=== PATIENT | male | born 1960 | race Two or more races ===

== ENCOUNTER 2018-04-01 06:40 | Emergency (ER) | payer MEDICAID ==
[~2018-04-01] VITALS: Ht 177.8 cm; Wt 86.2 kg
[2018-04-01 10:45] VITALS: BP 148/78
== END 2018-04-01 11:05 | disposition home or self-care (01) ==
LOC: ER 06:40 → EDBD 06:40 → ER 11:05
DX: L03.116 Cellulitis of left lower limb (principal); I10 Essential (primary) hypertension; F17.210 Nicotine dependence, cigarettes, uncomplicated
CPT/HCPCS: 36415; 84550; 93971

== ENCOUNTER 2018-05-14 21:58 | Inpatient (IN) | payer MEDICAID | END 2018-05-17 13:10 | disposition home or self-care (01) | LOC: ER 21:58 → OVERFLOW 05-15 06:50 → WEST WING 05-15 23:02 | DX: M86.8X7 Other osteomyelitis, ankle and foot (principal); L03.116 Cellulitis of left lower limb; I10 Essential (primary) hypertension ==

== ENCOUNTER 2022-03-14 05:01 | Emergency (ER) | payer MEDICAID ==
[~2022-03-14] VITALS: Ht 177.8 cm; Wt 97.0 kg
[2022-03-14 07:46] LABS: Basophils # (auto) 0 10 ^3/uL (0-0.2); Basophils % (auto) 0.5 % (0.0-2.0); Eosinophils # (auto) 0.2 10 ^3/uL (0-0.8); Eosinophils % (auto) 4.8 % (0.0-7.0); Hematocrit 37.9 % (41.0-53.0); Hemoglobin 11.8 g/dL (13.5-17.5); Lymphocytes # (auto) 1.1 10 ^3/uL (0.4-5.4); Lymphocytes % (auto) 25.3 % (10.0-50.0); Mean Corpuscular Hemoglobin 24.3 pg (28.0-32.0); Mean Corpuscular Hgb Conc. 31.2 g/dL (32.0-36.0); Monocytes # (auto) 0.5 10 ^3/uL (0-1.3); Monocytes % (auto) 11.4 % (0.0-12.0); Neutrophils # (auto) 2.5 10 ^3/uL (1.6-8.6); Nucleated Red Blood Cells % 0.2 %; Red Blood Cells 4.86 10^6/uL (4.5-5.90); Red Cell Distribution Width 15.5 % (11.8-14.3); White Blood Cell 4.4 10^3/uL (4.4-10.8)
[2022-03-14 08:14] LABS: Albumin 2.7 g/dL (3.4-5.0); BUN/Creatinine Ratio 22.7; Calcium 8.7 mg/dL (8.5-10.1)
[2022-03-14 08:16] LABS: Bilirubin, Total 0.3 mg/dL (0.2-1.0); Total Protein 8.3 g/dL (6.4-8.2)
[2022-03-14 10:36] VITALS: BP 165/85
== END 2022-03-14 10:39 | disposition home or self-care (01) ==
LOC: ER 05:16
DX: S86.911A Strain of unspecified muscle(s) and tendon(s) at lower leg level, right leg, initial encounter (principal); I10 Essential (primary) hypertension; E46 Unspecified protein-calorie malnutrition; F17.210 Nicotine dependence, cigarettes, uncomplicated; F15.90 Other stimulant use, unspecified, uncomplicated; Z90.89 Acquired absence of other organs; X58.XXXA Exposure to other specified factors, initial encounter; Y93.89 Activity, other specified; Y92.89 Other specified places as the place of occurrence of the external cause; Y99.8 Other external cause status
CPT/HCPCS: 36415; 80053; 84484; 85025; 93970

== ENCOUNTER 2024-03-21 | Inpatient (IN) | payer MEDICAID ==
[2024-03-21] VITALS (7 sets, daily range): BP systolic 111–142; BP diastolic 67–86; PULSE 67–82; RESP 18–20; TEMP 97.3–98.7; O2SAT 93–98
[~2024-03-21] VITALS: Ht 177.8 cm; Wt 92.2 kg
--- NOTE | 2024-03-21 03:26 | ED.PDOC ---
History of Present Illness(SKN HPI Comments PT PRESENTED TO ED FOR LEFT UPPER ARM PAIN AFTER TETANUS VACCINE X1 MONTH AGO. UPPER ARM REDNESS/SWELLING NOTED. HE HAS NUMBNESS, WEAKNESS, CHEST PAIN, DIFFICULTY BREATHING, SHORTNESS BREATH, FEVER, OR CHILLS Chief Complaint: Upper Extremity Time Seen by MD: 00:06 Primary Care Provider: SHARRI History of Present Illness: Nurses Notes, Medications, Allergies Allergies: Coded Allergies: Gabapentin (Verified Allergy, Unknown, 03/21/24) Home Meds No Active Prescriptions or Reported Meds Information Source: Patient Mode of Arrival: Ambulatory Past Medical History PAST MEDICAL HISTORY: HTN, Liver Past Medical History (Other): HEP C METHADONE FOR OPIOID ADDICTION IV HEROIN Surgical History: Tonsillectomy Family History Family History: No family hx of DM, No family hx of Heart shannen, No family hx of HTN Social History Smoker: Cigarettes, Greater Than 1 Pack/Day Alcohol: Sober Drugs: Heroin Lives In: Home Constitutional: denies: chills, diaphoresis, fatigue, fever, malaise, sweats, weakness, others EENTM: denies: blurred vision, double vision, ear bleeding, ear discharge, ear drainage, ear pain, ear ringing, eye pain, eye redness, hearing loss, mouth pain, mouth swelling, nasal discharge, nose bleeding, nose congestion, nose pain, photophobia, tearing, throat pain, throat swelling, voice changes, others Respiratory: denies: cough, hemoptysis, orthopnea, SOB at rest, shortness of breath, SOB with excertion, stridor, wheezing, others Cardiovascular: denies: chest pain, dizzy spells, diaphoresis, Dyspnea on exertion, edema, irregular heart beat, left arm pain, lightheadedness, palpitations, PND, syncope, others Gastrointestinal: denies: abdomen distended, abdominal pain, blood streaked bowels, constipated, diarrhea, dysphagia, difficulty swallowing, hematemesis, melena, nausea, poor appetite, poor fluid intake, rectal bleeding, rectal pain, vomiting, others Genitourinary: denies: burning, dysuria, flank pain, frequency, hematuria, i ncontinence, penile discharge, penile sore, pain, testicle pain, testicle swelling, urgency, others Neurological: denies: dizziness, fainting, headache, left sided numbness, left sided weakness, numbness, paresthesia, pre-existing deficit, right sided numbness, right sided weakness, seizure, speech problems, tingling, tremors, weakness, others Musculoskeletal: reports: others (OVER LATERAL LEFT SHOULDER PAIN); denies: back pain, gout, joint pain, joint swelling, muscle pain, muscle stiffness, neck pain Integumetry: denies: bruises, change in color, change in hair/nails, dryness, laceration, lesions, lumps, rash, wounds, others Allergic/Immunocompromised: denies: Difficulty Healing, Frequent Infections, Hives, Itching, others Hematologic/Lymphatic: denies: anemia, blood clots, easy bleeding, easy bruising, swollen glands, others Endocrine: denies: excessive hunger, excessive sweating, excessive thirst, excessive urination, flushing, intolerance to cold, intolerance to heat, unexplained weight gain, unexplained weight loss, others Psychiatric: denies: anxiety, bipolar disorder, depression, hopeless, panic disorder, schizophrenia, sleepless, suicidal, others Physical Exam General Appearance: No Apparent Distress, Normal HEENT: Pharynx Normal Neck: Full Range of Motion, Non-Tender Respiratory: Lungs Clear, No Respiratory Distress, Normal Breath Sounds Cardiovascular: No Edema, No JVD, No Murmur, No Gallop, Normal Peripheral Pulses, Regular Rate/Rhythm Breast Exam: Deferred Gastrointestinal: No Organomegaly, Non Tender, No Pulsatile Mass, Normal Bowel Sounds, Soft Genitalia: Deferred Pelvic: Deferred Rectal: Deferred Extremities: Leg edema (+ 2 PITTING BILATERAL), No calf tenderness, Normal capillary refill, Normal inspection, Normal range of motion, Non-tender Musculoskeletal : Location: Left Extremity Location: Shoulder (APPROXIMATE TENNIS BALL SIZE MASS TO LEFT LATERAL SHOULDER OVER DELTOID WITH MODERATE TENDERNESS AND WARMTH. 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 Was a procedure done?: No Differential Diagnosis (INTG) Differential Diagnosis: Cellulitis, Contusion Differential Diagnosis: Abscess, Drug Reaction X-Ray, Labs, Meds, VS Vital Signs Date Time Temp Pulse Resp B/P (MAP) Pulse Ox O2 Delivery O2 Flow Rate FiO2 03/21/24 03:22 98.0 79 19 146/83 (104) 96 98.0 03/21/24 03:22 79 19 96 Room Air 03/21/24 00:48 98.5 89 16 139/82 (101) 99 Lab Test 03/21/24 05:14 Range/Units White Blood Count 6.4 4.4-10.8 10^3/uL Red Blood Count 3.31 L 4.5-5.90 10^6/uL Hemoglobin 7.6 L 13.5-17.5 g/dL Hematocrit 24.4 L 41.0-53.0 % Mean Corpuscular Volume 73.8 L 80.0-100.0 fL Mean Corpuscular Hemoglobin 22.9 L 28.0-32.0 pg Mean Corpuscular Hemoglobin Concent 31.1 L 32.0-36.0 g/dL Red Cell Distribution Width 17.6 H 11.8-14.3 % Platelet Count 334 140-450 10^3/uL Mean Platelet Volume 6.7 L 6.9-10.8 fL Neutrophils (%) (Auto) 66.6 37.0-80.0 % Lymphocytes (%) (Auto) 19.8 10.0-50.0 % Monocytes (%) (Auto) 12.5 H 0.0-12.0 % Eosinophils (%) (Auto) 0.6 0.0-7.0 % Basophils (%) (Auto) 0.5 0.0-2.0 % Neutrophils # (Auto) 4.2 1.6-8.6 10 ^3/uL Lymphocytes # (Auto) 1.3 0.4-5.4 10 ^3/uL Monocytes # (Auto) 0.8 0-1.3 10 ^3/uL Eosinophils # (Auto) 0 0-0.8 10 ^3/uL Basophils # (Auto) 0 0-0.2 10 ^3/uL Nucleated Red Blood Cells 0.0 % Erythrocyte Sedimentation Rate Pending Sodium Level Pending Potassium Level Pending Chloride Level Pending Carbon Dioxide Level Pending Anion Gap Pending Blood Urea Nitrogen Pending Creatinine Pending Glomerular Filtration Rate Calc Pending BUN/Creatinine Ratio Pending Serum Glucose Pending Calcium Level Pending Total Bilirubin Pending Aspartate Amino Transferase (AST) Pending Alanine Aminotransferase (ALT) Pending Alkaline Phosphatase Pending C-Reactive Protein High Sensitivity Pending Total Protein Pending Albumin Pending X-Ray, Labs, Meds, VS Comment PT LEFT SHOULDER IMPRESSION: 1. Large left glenohumeral joint effusion. This could be infectious or inflammatory in etiology. No bony destruction to suggest osteomyelitis however please note that osteomyelitis may not be apparent on CT. MRI of the left shoulder without and with intravenous contrast is recommended further evaluation to exclude osteomyelitis. 2. Left axillary lymphadenopathy, likely reactive. PATIENT ADMIT PLACED FOR HOSPITALIST FOR SEPTIC JOINT AND RULE OUT OSTEOMYELITIS MRI WITH AND WITHOUT CONTRAST OF LEFT SHOULDER IN THE A.M., SYNOVIAL FLUID ASPIRATION/CULTURES, AND ORTHO CONSULT. CBC, CMP, ESR, CRP, AND BLOOD CULTURES ORDERED. START VANCOMYCIN AND CEFEPIME. Time of 1ST Reevaluation: 05:13 Reevaluation 1ST: Unchanged Patient Education/Counseling: Diagnosis, Treatment, Prognosis, Need For Follow Up Family Education/Counseling: No Family Present Departure 1 Departure Time of Disposition: 04:46 Impression: Primary Impression: Septic joint of left shoulder region Qualified Codes: M00.9 - Pyogenic arthritis, unspecified Additional Impressions: Effusion of shoulder joint, left Left shoulder pain Qualified Codes: M25.512 - Pain in left shoulder Disposition: ADMITTED INPATIENT Condition: Stable e-Prescriptions No Active Prescriptions or Reported Meds Discharged With: Self Critical Care Note Critical Care Time?: No Stability Stability form required: ANITA Lopez Mar 21, 2024 03:26
--- NOTE | 2024-03-21 04:42 | DVH ---
CLINICAL INDICATION: 63 years old, Male; LUMP/PAIN. TECHNIQUE: Noncontrast CT of the left shoulder was performed. Sagittal and coronal reformatted images are provided. COMPARISON: None CT Dose: CTDI volume is 28.5 mGy. Dose-length product is 698. mGy*cm FINDINGS: No fracture or dislocation. No cortical destruction. There is a fairly large glenohumeral joint effus ion. Enlarged left axillary lymph nodes measuring up to 1.4 cm in short axis. Visualized left lung clifton are clear. IMPRESSION: 1. Large left glenohumeral joint effusion. This could be infectious or inflammatory in etiology. No bony destruction to suggest osteomyelitis however please note that osteomyelitis may not be apparent on CT. MRI of the left shoulder without and with intravenous contrast is recommended further evaluati on to exclude osteomyelitis. 2. Left axillary lymphadenopathy, likely reactive. All CT scans at this medical facility are performed using dose modulation techniques as appropriate t o a performed exam including the following: Automated exposure control was utilized; adjustment of th e MA and/or KV according to patient size; and use of iterative reconstruction technique.
[2024-03-21] MEDS: CEFEPIME 1GM/ 50ML 50 ML IV ONE (05:15)
[2024-03-21 05:51] LABS: Basophils # (auto) 0 10 ^3/uL (0-0.2); Basophils % (auto) 0.5 % (0.0-2.0); Eosinophils # (auto) 0 10 ^3/uL (0-0.8); Eosinophils % (auto) 0.6 % (0.0-7.0); Hematocrit 24.4 % (41.0-53.0); Hemoglobin 7.6 g/dL (13.5-17.5); Lymphocytes # (auto) 1.3 10 ^3/uL (0.4-5.4); Lymphocytes % (auto) 19.8 % (10.0-50.0); Mean Corpuscular Hemoglobin 22.9 pg (28.0-32.0); Mean Corpuscular Hgb Conc. 31.1 g/dL (32.0-36.0); Mean Corpuscular Volume 73.8 fL (80.0-100.0); Monocytes # (auto) 0.8 10 ^3/uL (0-1.3); Monocytes % (auto) 12.5 % (0.0-12.0); Neutrophils # (auto) 4.2 10 ^3/uL (1.6-8.6); Neutrophils % (auto) 66.6 % (37.0-80.0); Platelet Count (auto) 334 10^3/uL (140-450); Red Blood Cells 3.31 10^6/uL (4.5-5.90); Red Cell Distribution Width 17.6 % (11.8-14.3); White Blood Cell 6.4 10^3/uL (4.4-10.8)
[2024-03-21] MEDS: VANCOMYCIN 1GM/250ML KIT 250 ML IV ONE ×2 (06:08→08:50)
[2024-03-21] MEDS ORDERED: HYDR25TA4 PO (06:09)
[2024-03-21] MEDS ORDERED: BENA10TA16 PO (06:09)
[2024-03-21] MEDS ORDERED: ACETAMINOPHEN 325 MG TAB PO PRN (06:30)
[2024-03-21] MEDS ORDERED: VANCOMYCIN PER PHARMACY 0 MG IV SCH (06:30)
[2024-03-21] MEDS ORDERED: ONDANSETRON HCL 4 MG/2 ML VIAL IV PRN (06:30)
[2024-03-21 06:37] LABS: Albumin 3.3 g/dL (3.2-4.8); Alkaline Phosphatase 86 U/L (46-116); Anion Gap 4 (5-15); BUN/Creatinine Ratio 17.5 (10.0-20.0); Bilirubin, Total 0.5 mg/dL (0.2-1.0); Blood Urea Nitrogen 17 mg/dL (9-23); Carbon Dioxide 27 mmol/L (20-31); Chloride 101 mmol/L (98-107); Glucose 82 mg/dL (74-106); Potassium 4.2 mmol/L (3.5-5.1)
[2024-03-21] MEDS ORDERED: OMEP1CAP70 (06:38)
[2024-03-21 06:39] LABS: Erythrocyte Sedimentation Rate 111 mm/hr (0-20)
[2024-03-21 06:44] LABS: Alanine Aminotransferase 63 U/L (7-40); Aspartate Aminotransferase 127 U/L (13-40); Sodium 132 mmol/L (136-145); Total Protein 9.9 g/dL (5.7-8.2)
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
--- NOTE | 2024-03-21 07:54 | DVH ---
CLINICAL HISTORY: Bilateral lower extremity pain and swelling. COMPARISON: BI LOWER DVT on DOS: 03/14/22, BLDVT on DOS: 03/14/22 TECHNIQUE: Bilateral lower extremity venous duplex exam was performed. Grayscale, color flow, and spe ctral waveform analysis was performed. The deep veins of the lower extremity were evaluated for compr ession, phasic flow, and augmentation. FINDINGS: There is nonocclusive superficial thrombus in the left lower extremity greater saphenous ve in. Bilateral common femoral, femoral, and popliteal arteries are patent with normal spontaneous phas ic flow, compressibility, and augmentation. The posterior tibial veins and trifurcation of the calf a re also patent with normal spontaneous phasic flow. No evidence for deep venous thrombosis. Multiple bilateral inguinal lymph nodes, with the largest on the right measuring up to 3.2 x 1.0 x 2.2 cm and the largest on the left measuring up to 4.7 x 1.4 x 3.5 cm. These lymph nodes demonstrate echogenic h sebastian and normal reniform shape with no cortical thickening visualized. Likely reactive lymph nodes. IMPRESSION: 1. There is no evidence for DVT in either lower extremity. 2. Nonocclusive superficial thrombus in the left greater saphenous vein. 3. Multiple bilateral inguinal lymph nodes as described above, likely reactive lymph nodes based on m orphology, although given the size of the lymph nodes, correlation with clinical findings is needed. If there is clinical concern for malignancy, biopsy could be obtained.
--- NOTE | 2024-03-21 08:27 | DVH ---
CLINICAL INDICATION: 63 years old, Male; PAIN AND SWELLING. TECHNIQUE: Noncontrast CT of the left lower extremity was performed. Sagittal and coronal reformatted images are provided. COMPARISON: None CT Dose: CTDI volume is 11.42 mGy. Dose-length product is 1214.48 mGy*cm FINDINGS: No fracture or dislocation. No evidence of cortical destruction. There is narrowing in the left hip a nd knee joints. There soft tissue swelling in the lower extremity [id number] down to the ankle. There are varicose veins. No fluid collection. There is skin thickening in the ankle. IMPRESSION: 1. Diffuse soft tissue swelling from dudyn-nwk-bwma down to the ankle which may reflect cellulitis. N o fluid collection. No CT evidence of osteomyelitis. 2. Mild degenerative changes in the left hip and knee joints. All CT scans at this medical facility are performed using dose modulation techniques as appropriate t o a performed exam including the following: Automated exposure control was utilized; adjustment of th e MA and/or KV according to patient size; and use of iterative reconstruction technique.
[2024-03-21] MEDS: HYDROcodone-ACET 5/325MG TAB PO PRN (08:30)
[2024-03-21 08:52] LABS: % Iron Saturation 11.8 % (20-55)
--- NOTE | 2024-03-21 08:55 | DVH ---
CLINICAL INFORMATION: 63 years old, Male; PAIN AND SWELLING. TECHNIQUE: Axial CT images of the left lower extremity from the right hip level through the foot were obtained without IV contrast. Coronal and sagittal reformatted images were obtained, reviewed, and s tored. All CT scans at this medical facility are performed using dose modulation techniques as domingo ropriate to a performed exam including the following: Automated exposure control was utilized; adjust ment of the MA and/or KV according to patient size; and use of iterative reconstruction technique. CTDIvol = 11.38 mGy DLP = 1200.19 mGy-cm COMPARISON: None FINDINGS: No acute fracture. Moderate joint space narrowing of the right hip with associated mild sub chondral sclerosis. There are osteochondral defects at the articular surfaces of the medial and la teral tibial plateau, measuring up to 1.7 x 1.1 cm at the lateral tibial plateau and extending up to 0.8 cm in depth. At the medial tibial plateau, there is a small 0.6 cm osteochondral defect. Severe j oint space narrowing in the medial compartment with associated subchondral sclerosis and moderate to severe joint space narrowing in the lateral compartment of the right knee. Moderate joint space narro wing in the patellofemoral compartment. Mild to moderate subcutaneous edema in the right lower leg wi th mild skin thickening. No organized soft tissue fluid collection or mass identified. IMPRESSION: 1. Osteochondral lesions in the medial and lateral tibial plateau and arthritic changes in the right knee as detailed above. 2. Moderate arthritic changes also noted in the right hip 3. Ofrb-el-hhjpfuyc subcutaneous edema in the right lower leg. Possible cellulitis in the appropriate clinical setting, although venous stasis changes could also have a similar appearance.
[2024-03-21] MEDS: hydroCHLOROthiazide 25 MG TAB PO SCH (09:53)
[2024-03-21] MEDS: BENAZEPRIL HCL 10 MG TAB PO SCH (09:53)
[2024-03-21] MEDS: ENOXAPARIN SOD 100 MG/1 ML SYRINGE SC SCH (09:54)
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
[2024-03-21] MEDS: CEFEPIME 1GM/ 50ML 50 ML IV SCH ×2 (14:30→20:46)
[2024-03-21] MEDS: VANCOMYCIN 1.25GM/250ML 250 ML IV SCH (15:00)
--- NOTE | 2024-03-21 16:00 | DVHSR ---
APPROVED REPORT EXAM: Two-dimensional and M-mode echocardiogram with Doppler and color Doppler. Blood Pressure: 112/67 mmHg INDICATION Pre-Op Procedural, eval cardiac function RISK FACTORS Height: 70, Weight: 205 DIMENSIONS LVDd4.7 (3.8-5.7cm)LA (2D)3.8 (1.9-4.0cm)Aortic Root4.0 (2.0-3.7cm) LVDs3.2 (2.5-4.0cm)LA (MM) (1.9-4.0cm)Aortic Cusp Exc2.1 (1.5-2.0cm) EF (%) 60.0 (55-70%)Rt. Atrium3.5 (1.9-4.0cm)Asc. Aorta cm IVSd1.0 (0.7-1.1cm)RV (D) (1.8-2.4cm) PWd1.1 (0.7-1.1cm) Mitral Valve MitralMitral Stenosis E wave0.57m/sMV Mean GR.mmHg A wave0.84m/sMV Peak GR.mmHg E/A ratio0.72D MVAcm2 DECEL [id number] 1/2 [id number] IVRTmsDop MVA2.48cm2 Aortic Valve Aortic ValveAortic Stenosis V11.07m/Margo Mean GR.4mmHg V21.52m/Margo Peak GR.9mmHg LVOT Diameter2.2 (1.8-2.4cm)Doppler AVA2.67cm2 Pulmonic Valve V21.10m/s Tricuspid Valve TR Velocity2.33m/s [id number] LEFT VENTRICLE The left ventricle is of normal size. Wall thickness is normal. Ejection fraction is normal and is estimated at 60%. There is no regional wall motion abnormalities. Diastolic function appears to be preserved. E to E prime ratio is in normal range. RIGHT VENTRICLE The right ventricle is of normal size. Systolic function is normal. ATRIA Both atria are of normal size. Intra-atrial septum appears to be normal. MITRAL VALVE Normal structure and function. No significant mitral regurgitation. PULMONIC VALVE Likely normal. TRICUSPID VALVE Normal structure and function. There is mild tricuspid regurgitation. PA systolic pressure is estim ated at 30 mm Hg. AORTIC VALVE Normal structure and function. GREAT VESSELS The aortic root measures 4.0 cm at the level of the sinuses of Valsalva. Proximal ascending aorta is n't well visualized. PERICARDIAL EFFUSION No significant effusion. IVC is of normal size and collapses normally with inspiration. Conclusion Normal left ventricular size and systolic function. Ejection fraction is estimated at 60%. Normal right ventricular size and systolic function. No hemodynamically significant valvular disease. PA systolic pressure is estimated at 30 mm Hg. No significant pericardial effusion. Mildly dilated aortic root measuring 4.0 cm at the sinuses of Valsalva.
[2024-03-21] MEDS: METHADONE HCL 10 MG TAB PO ONE (16:43)
--- NOTE | 2024-03-21 16:48 | DVH ---
CHEST RADIOGRAPH Indication: Preprocedural examination Technique: Single frontal view of the chest was obtained Comparison: None FINDINGS: Lines and Tubes: None Lungs: No focal consolidation. Pleura: No effusion. No pneumothorax. Cardiomediastinal contours: Unremarkable Bones: No acute osseous abnormality. IMPRESSION: No acute cardiopulmonary disease.
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
[2024-03-21] MEDS: MORPHINE SULFATE INJ 2 MG/ml SYRG IV PRN (22:12)
[2024-03-22] VITALS (10 sets, daily range): BP systolic 114–150; BP diastolic 72–77; PULSE 58–82; RESP 16–22; TEMP 98–98.7; O2SAT 90–100
[2024-03-22 02:13] LABS: Urine Bacteria None Seen /hpf (None Seen)
[2024-03-22 02:32] LABS: Urine Blood 2+ /uL (Negative); Urine Clarity Turbid (Clear); Urine Color Yellow (Yellow); Urine Protein, UAD TRACE (Negative); Urine Specific Gravity 1.016 (1.001-1.035); Urine Squamous Epithelial Cell None Seen /hpf (<5); Urine Urobilinogen 3 mg/dL (Negative); Urine WBC 102 /HPF (0-3); Urine pH 6.5 (5.0-9.0)
[2024-03-22 02:53] LABS: Phencyclidine Screen, Urine Neg (NEGATIVE)
[2024-03-22 03:19] LABS: Amphetamine Screen, Urine Pos (NEGATIVE); Barbiturate Scree,Urine Neg (NEGATIVE); Benzodiazephine Screen, Urine Neg (NEGATIVE); Cannabinoid Screen, Urine Neg (NEGATIVE); Cocaine Screen, Urine Neg (NEGATIVE); Opiate Scree,Urine Pos (NEGATIVE)
[2024-03-22 07:54] LABS: Basophils # (auto) 0 10 ^3/uL (0-0.2); Basophils % (auto) 0.2 % (0.0-2.0); Eosinophils # (auto) 0.1 10 ^3/uL (0-0.8); Eosinophils % (auto) 1.3 % (0.0-7.0); Hemoglobin 8.5 g/dL (13.5-17.5); Lymphocytes # (auto) 0.9 10 ^3/uL (0.4-5.4); Lymphocytes % (auto) 18.7 % (10.0-50.0); Monocytes # (auto) 0.5 10 ^3/uL (0-1.3); Neutrophils # (auto) 3.3 10 ^3/uL (1.6-8.6)
[2024-03-22 07:56] LABS: Mean Corpuscular Hemoglobin 23.5 pg (28.0-32.0); Mean Corpuscular Hgb Conc. 31.4 g/dL (32.0-36.0); Mean Corpuscular Volume 74.9 fL (80.0-100.0); Monocytes % (auto) 10.1 % (0.0-12.0); Neutrophils % (auto) 69.7 % (37.0-80.0); Nucleated Red Blood Cells % 0.1 %; Platelet Count (auto) 275 10^3/uL (140-450); Red Blood Cells 3.61 10^6/uL (4.5-5.90); White Blood Cell 4.8 10^3/uL (4.4-10.8)
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
[2024-03-22 08:01] LABS: Alkaline Phosphatase 68 U/L (46-116); Anion Gap 7 (5-15); BUN/Creatinine Ratio 17.4 (10.0-20.0); Blood Urea Nitrogen 15 mg/dL (9-23); Carbon Dioxide 24 mmol/L (20-31); Chloride 99 mmol/L (98-107); Glucose 79 mg/dL (74-106); Potassium 3.9 mmol/L (3.5-5.1)
[2024-03-22 08:02] LABS: Bilirubin, Total 0.4 mg/dL (0.2-1.0)
[2024-03-22 08:09] LABS: Alanine Aminotransferase 44 U/L (7-40); Albumin 2.7 g/dL (3.2-4.8); Aspartate Aminotransferase 89 U/L (13-40); Calcium 8.5 mg/dL (8.7-10.4); Sodium 130 mmol/L (136-145); Total Protein 8.2 g/dL (5.7-8.2)
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
[2024-03-22] MEDS ORDERED: MIDAZOLAM HCL 2MG/2ML 2ml VIAL (1mg/ml) ONE (09:22)
[2024-03-22] MEDS ORDERED: fentaNYL CITRATE 100 MCG/2 ML VL ONE (09:22)
[2024-03-22] MEDS: ONDANSETRON HCL 4 MG/2 ML VIAL IV ONE (09:45)
[2024-03-22] MEDS: KETOROLAC TROMETH 30 MG/ML 1ML VIAL IV ONE (09:45)
[2024-03-22] MEDS: METOCLOPRAMIDE HCL 5MG/ml INJ 2ml VIAL IV ONE (09:45)
[2024-03-22] MEDS ORDERED: HYDROmorphone HCL 2 MG/ML VL/or syr IV PRN (09:45)
[2024-03-22] MEDS: METHADONE HCL 10 MG TAB PO SCH (10:00)
[2024-03-22] MEDS ORDERED: PROPOFOL 10 MG/ML 20 ML IV ONE (10:04)
[2024-03-22] MEDS ORDERED: ONDANSETRON HCL 4 MG/2 ML VIAL ONE (10:04)
[2024-03-22] MEDS: BUPIVACAINE 0.25% INJ 50ML VIAL ONE (10:19)
[2024-03-22] MEDS: VANCOMYCIN HCL 1000 MG VL ONE (10:19)
--- NOTE | 2024-03-22 10:32 | DVHOP2 ---
Operative Report - 2 Report Details Date: 03/22/24 Preop Diagnosis: Left shoulder abscess, deltoid, vs intraarticular Postop Diagnosis: Left shoulder deltoid abscess, non articular Surgeon: Jose Armando MD Press Cutter: none Anesthesiologist: Dr Dejesus Anesthesia: General Drains: NATI Implant: none Consent: The patient was informed of the risks and benefits of the procedure. These include but are not limited to complications of anesthesia, postoperative infection, incomplete relief of symptoms, recurrence of symptoms, damage to blood vessels, nerves and tendons, deep venous thrombosis, pulmonary embolism and possible need for repeat surgery in the future. Complications: none Estimated Blood Loss: 10 cc Fluids: 500 cc crystalloid Findings: gross puss within fascial boundries of deltoid, no loculation, no penetration of shoulder capsule Indications for Surgery: left shoulder abscess with risk of sepsis Name of Procedure Performed Left shoulder incision and drainage deltoid abscess , placement of NATI drain Procedure Details Procedure Details: Patient brought in the operating room already on IV vanco and broad-spectrum antibiotics IV line placed left external jugular without complication sterile prep and drape left upper extremity time-out performed confirming left shoulder correct shoulder I and D plus or minus arthroscopic lavage of left shoulder abscess after review of operative consent history and physical my initials and left shoulder all present in operating room agreeing left shoulder correct shoulder and I and D versus arthroscopic lavage correct procedure Patient placed in beach chair position head and anatomic position double strap around chest pad under knees to allow flexion and hips and flexion of knees and padding under bilateral heels longitudinal incision made 2 cm from lateral edge of the acromion for a total length of 2 cm sharp dissection through skin down to deep fascia deep fascia divided with gross pus under pressure expressed manual are digital palpation in this area performed confirming lack of loculation also notably no penetration of shoulder capsule irrigation performed with normal sali ne and vancomycin powder placed within area of abscess cultures taken x2 purulent fluid and NATI drain placed exiting anteriorly and then closure of I and D site with subcutaneous 2-0 Vicryl skin skin 4-0 nylon fluffs NATI drain antibiotics to be tailored to culture results Specimen: abscess fluid culture x 2 Condition Stable Disposition Still a Patient JOSE ARMANDO MD Mar 22, 2024 10:32
[2024-03-22] MEDS: D5W/SOD CHL 0.45%/KCL 20MEQ 1,000 ML IV SCH (10:45)
--- NOTE | 2024-03-22 16:09 | DVH ---
CLINICAL INFORMATION: 63 years old, Male; Septic left shoulder. Reported history of incision and dr land on 03/22/2024. TECHNIQUE: Axial PD fat-sat, coronal PD fat-sat, and axial T2 fat-sat MRI images of the left shoulder were obtained without IV contrast. The patient was unable to tolerate additional imaging. Motion on the sequences obtained COMPARISON: None FINDINGS: Limited, incomplete examination. Patient was unable to tolerate the examination or hold still for th e examination. On the sequences obtained, there is a large fluid collection in the subacromial/subdel toid bursa with [id number] synovitis. There is a moderate glenohumeral joint effusion prominent fluid in the subscapularis recess, also with moderate synovitis. There appears to be a focal full-th ickness tear involving the anterior fibers of the supraspinatus tendon at the insertion, suspected on the coronal and axial sequences, although no sagittal sequences were able to be obtained to better c haracterize and the images obtained demonstrate motion artifact. Suspected partial-thickness articula r surface tear in the distal subscapularis tendon. Long head biceps tendon appears intact. Intrasubst ance signal in the anterior inferior glenoid labrum, suspected tear. There is no marrow signal abnorm ality identified in the proximal humerus or glenoid to suggest osteomyelitis on the sequences obtaine d. Prominent left axillary lymph nodes, likely reactive. There is intramuscular edema in the deltoid musculature, may be due to myositis in the appropriate clinical setting and/or secondary to recent in tervention. IMPRESSION: 1. Limited, incomplete study as described above. 2. Large complex fluid collection in the subacromial/subdeltoid bursa. 3. Moderate complex fluid in the glenohumeral joint, may correlate with reported clinical history of septic arthritis. 4. No marrow signal abnormality identified to suggest osteomyelitis. 5. Suspected focal full-thickness tear of the anterior fibers of the supraspinatus tendon. 6. Suspected partial-thickness articular surface tear of the distal subscapularis tendon. 7. Tear of the anterior inferior glenoid labrum. Intramuscular edema of the deltoid musculature, may be due to myositis or sequelae of recent interve ntion.
[2024-03-23 01:00] VITALS: BP 122/80; PULSE 81; RESP 18; TEMP 98.5; O2SAT 92
[2024-03-23 05:00] VITALS: BP 129/72; PULSE 69; RESP 19; TEMP 98; O2SAT 96
[2024-03-23 07:23] LABS: Basophils # (auto) 0 10 ^3/uL (0-0.2); Eosinophils # (auto) 0.1 10 ^3/uL (0-0.8); Mean Corpuscular Volume 73.8 fL (80.0-100.0); Monocytes # (auto) 0.6 10 ^3/uL (0-1.3); Nucleated Red Blood Cells % 0.1 %; White Blood Cell 5.2 10^3/uL (4.4-10.8)
[2024-03-23 07:25] LABS: Basophils % (auto) 0.3 % (0.0-2.0); Eosinophils % (auto) 1.2 % (0.0-7.0); Hematocrit 26.4 % (41.0-53.0); Hemoglobin 8.3 g/dL (13.5-17.5); Lymphocytes % (auto) 18.8 % (10.0-50.0); Mean Corpuscular Hemoglobin 23.2 pg (28.0-32.0); Mean Corpuscular Hgb Conc. 31.4 g/dL (32.0-36.0); Monocytes % (auto) 11.2 % (0.0-12.0); Neutrophils # (auto) 3.5 10 ^3/uL (1.6-8.6); Neutrophils % (auto) 68.5 % (37.0-80.0); Platelet Count (auto) 261 10^3/uL (140-450); Red Blood Cells 3.57 10^6/uL (4.5-5.90); Red Cell Distribution Width 17.9 % (11.8-14.3)
[2024-03-23 09:35] VITALS: BP 145/81; PULSE 69; RESP 17; TEMP 98; O2SAT 95
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
[2024-03-23 13:00] VITALS: BP 122/72; PULSE 66; RESP 16; TEMP 97.8; O2SAT 98
[2024-03-23 17:11] VITALS: BP 134/82; PULSE 69; RESP 16; TEMP 98.4; O2SAT 98
[2024-03-23 21:00] VITALS: BP 137/78; PULSE 66; RESP 16; TEMP 97.8; O2SAT 97
[2024-03-23] MEDS: MUPIROCIN 2% OINT 15gm or 22gm FOR MRSA NARES EACHNOSTRI SCH (22:00)
[2024-03-24] MEDS: MELATONIN 5 MG TAB PO ONE (00:03)
[2024-03-24 01:00] VITALS: BP 135/90; PULSE 71; RESP 17; TEMP 97.6; O2SAT 94
[2024-03-24 05:00] VITALS: BP 147/87; PULSE 62; RESP 18; TEMP 98.1; O2SAT 98
[2024-03-24 07:47] LABS: INR 1.15 (0.9-1.15)
[2024-03-24 09:19] VITALS: BP 148/84; PULSE 60; RESP 17; TEMP 98; O2SAT 98
--- NOTE | 2024-03-24 10:03 | DVHPN2 ---
Date of Progress Note Date of Progress Note Date of Progress Note: 03/24/24 Date of Admission Date of Admission Date of Admission: Date of Admission: Mar 21, 2024 at 06:20 Overnight Events Overnight events Overnight Events pain improved left shoulder no drainage NATI left shoulder Family History Family History Family History: Family history: Diabetes mellitus G8 MOTHER Stroke G8 FATHER Allergies: Coded Allergies: Gabapentin (Verified Allergy, Unknown, 03/21/24) Home Meds Active Scripts Benazepril Hcl (LOTENSIN TABLET) 10 Mg Tb, 10 MG PO DAILY for 30 Days, #30 TAB Prov:ANITA LA HEAVY RAIL TRAIN OPERATOR 03/21/24 Hydrochlorothiazide (Hydrochlorothiazide) 25 Mg Tab, 1 TAB PO DAILY for 30 Days, #30 TAB 5 Refills Prov:BESSIEANITA HEAVY RAIL TRAIN OPERATOR 03/21/24 Reported Medications Omeprazole (Omeprazole Dr) 20 Mg Cap, 1 DAILY 03/21/24 Current Medications Current Medications Medications (Trade) Dose Ordered Sig/Gordy Route PRN Reason Start Time Stop Time Status Last Admin Mupirocin (Bactroban 2% Ointment) 1 applic BID EACHNOSTRI 03/23/24 22:00 03/28/24 21:59 03/24/24 09:35 Physical Examination General Examination: Last Vital sign Vital Signs Date Time Temp Pulse Resp B/P (MAP) Pulse Ox O2 Delivery O2 Flow Rate FiO2 03/24/24 09:27 148/84 03/24/24 09:19 98.0 60 17 98 98.0 03/24/24 07:30 Room Air* 0 21 General: General: No apparent distress, appears comfortable. Cooperative. Extremities: left shoulder, no recurrent swelling , no NATI drainage Neurological Examination: Neurological Examination: Mental Status: Cranial Nerves: Motor Examination: Reflexes: Sensory: Coordination: Gait: Labs: Labs: Laboratory Tests Test 03/21/24 05:14 03/21/24 06:42 03/21/24 08:13 03/22/24 02:00 Range/Units White Blood Count 6.4 4.4-10.8 10^3/uL Red Blood Count 3.31 L 4.5-5.90 10^6/uL Hemoglobin 7.6 L 13.5-17.5 g/dL Hematocrit 24.4 L 41.0-53.0 % Mean Corpuscular Volume 73.8 L 80.0-100.0 fL Mean Corpuscular Hemoglobin 22.9 L 28.0-32.0 pg Mean Corpuscular Hemoglobin Concent 31.1 L 32.0-36.0 g/dL Red Cell Distribution Width 17.6 H 11.8-14.3 % Platelet Count 334 140-450 10^3/uL Mean Platelet Volume 6.7 L 6.9-10.8 fL Neutrophils (%) (Auto) 66.6 37.0-80.0 % Lymphocytes (%) (Auto) 19.8 10.0-50.0 % Monocytes (%) (Auto) 12.5 H 0.0-12.0 % Eosinophils (%) (Auto) 0.6 0.0-7.0 % Basophils (%) (Auto) 0.5 0.0-2.0 % Neutrophils # (Auto) 4.2 1.6-8.6 10 ^3/uL Lymphocytes # (Auto) 1.3 0.4-5.4 10 ^3/uL Monocytes # (Auto) 0.8 0-1.3 10 ^3/uL Eosinophils # (Auto) 0 0-0.8 10 ^3/uL Basophils # (Auto) 0 0-0.2 10 ^3/uL Nucleated Red Blood Cells 0.0 % Erythrocyte Sedimentation Rate 111 H 0-20 mm/hr Sodium Level 132 L 136-145 mmol/L Potassium Level 4.2 3.5-5.1 mmol/L Chloride Level 101 98-107 mmol/L Carbon Dioxide Level 27 20-31 mmol/L Anion Gap 4 L 5-15 Blood Urea Nitrogen 17 9-23 mg/dL Creatinine 0.97 0.700-1.30 mg/dL Glomerular Filtration Rate Calc 88 >90 mL/min BUN/Creatinine Ratio 17.5 10.0-20.0 Serum Glucose 82 74-106 mg/dL Calcium Level 9.0 8.7-10.4 mg/dL Total Bilirubin 0.5 0.2-1.0 mg/dL Aspartate Amino Transferase (AST) 127 H 13-40 U/L Alanine Aminotransferase (ALT) 63 H 7-40 U/L Alkaline Phosphatase 86 46-116 U/L C-Reactive Protein High Sensitivity 4.53 H <1.0 mg/dL Total Protein 9.9 H 5.7-8.2 g/dL Albumin 3.3 3.2-4.8 g/dL Lactic Acid Level 1.4 0.4-2.0 mmol/L Iron Level 41 L 65-175 ug/dL Total Iron Binding Capacity 346 250-425 ug/dL Percent Iron Saturation 11.8 L 20-55 % Hepatitis B Surface Antibody Positive H Negative Urine Color Yellow Yellow Urine Clarity Turbid H Clear Urine pH 6.5 5.0-9.0 Urine Specific [place] 1.016 1.001-1.035 Urine Protein Trace H Negative Urine Ketones Negative Negative Urine Blood 2+ H Negative /uL Urine Nitrite Negative Negative Urine Bilirubin Negative Negative Urine Urobilinogen 3 H Negative mg/dL Urine Leukocyte Esterase 2+ Negative /uL Urine RBC 196 0 - 3 /hpf Urine Microscopic WBC 102 H 0-3 /HPF Urine Squamous Epithelial Cells None seen <5 /hpf Urine Bacteria None seen None Seen /hpf Urine Glucose Normal Normal mg/dL Urine Opiates Screen Pos NEGATIVE Urine Fentanyl Screen Neg NEGATIVE Urine Barbiturates Screen Neg NEGATIVE Urine Phencyclidine Screen Neg NEGATIVE Urine Amphetamines Screen Pos NEGATIVE Urine Benzodiazepines Screen Neg NEGATIVE Urine Cocaine Screen Neg NEGATIVE Urine Cannabinoids Screen Neg NEGATIVE Test 03/22/24 07:13 03/22/24 15:00 03/23/24 05:53 03/24/24 07:16 Range/Units White Blood Count 4.8 5.2 4.4-10.8 10^3/uL Red Blood Count 3.61 L 3.57 L 4.5-5.90 10^6/uL Hemoglobin 8.5 L 8.3 L 13.5-17.5 g/dL Hematocrit 27.0 #L 26.4 L 41.0-53.0 % Mean Corpuscular Volume 74.9 L 73.8 L 80.0-100.0 fL Mean Corpuscular Hemoglobin 23.5 L 23.2 L 28.0-32.0 pg Mean Corpuscular Hemoglobin Concent 31.4 L 31.4 L 32.0-36.0 g/dL Red Cell Distribution Width 18.0 H 17.9 H 11.8-14.3 % Platelet Count 275 261 140-450 10^3/uL Mean Platelet Volume 6.6 L 7.1 6.9-10.8 fL Neutrophils (%) (Auto) 69.7 68.5 37.0-80.0 % Lymphocytes (%) (Auto) 18.7 18.8 10.0-50.0 % Monocytes (%) (Auto) 10.1 11.2 0.0-12.0 % Eosinophils (%) (Auto) 1.3 1.2 0.0-7.0 % Basophils (%) (Auto) 0.2 0.3 0.0-2.0 % Neutrophils # (Auto) 3.3 3.5 1.6-8.6 10 ^3/uL Lymphocytes # (Auto) 0.9 1.0 0.4-5.4 10 ^3/uL Monocytes # (Auto) 0.5 0.6 0-1.3 10 ^3/uL Eosinophils # (Auto) 0.1 0.1 0-0.8 10 ^3/uL Basophils # (Auto) 0 0 0-0.2 10 ^3/uL Nucleated Red Blood Cells 0.1 0.1 % Sodium Level 130 L 136-145 mmol/L Potassium Level 3.9 3.5-5.1 mmol/L Chloride Level 99 98-107 mmol/L Carbon Dioxide Level 24 20-31 mmol/L Anion Gap 7 5-15 Blood Urea Nitrogen 15 9-23 mg/dL Creatinine 0.86 0.700-1.30 mg/dL Glomerular Filtration Rate Calc 97 >90 mL/min BUN/Creatinine Ratio 17.4 10.0-20.0 Serum Glucose 79 74-106 mg/dL Calcium Level 8.5 L 8.7-10.4 mg/dL Total Bilirubin 0.4 0.2-1.0 mg/dL Aspartate Amino Transferase (AST) 89 H 13-40 U/L Alanine Aminotransferase (ALT) 44 H 7-40 U/L Alkaline Phosphatase 68 46-116 U/L Total Protein 8.2 5.7-8.2 g/dL Albumin 2.7 L 3.2-4.8 g/dL Vancomycin Level Trough 12.8 H 5-10 ug/mL Prothrombin Time 12.0 H 9.3-11.8 sec Prothrombin Time INR 1.15 0.9-1.15 Assessment/Plan Assessment/Plan Assessment and Plan:Sorin Wolfe is a 63 year old male POD 2 s/p I and D of left deltoid abscess, 10 cc pus drainged, lavage with NS, placement of vanco powder, abscess deltoid muscle only, no involvement of shoulder joint cultures taken, NGTD MRSA pos nasal swab bld CX NGTD 1) will dc NATI today 2) abx per internal med 3) clear from dc on abx from ortho view point, challenge is status as active IVDA and need for IV abx Plan discussed with: Patient CARLTON ARMANDO MD Mar 24, 2024 10:03
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
[2024-03-24] MEDS: LORazepam 0.5 MG TAB PO PRN (11:58)
[2024-03-24 13:21] VITALS: BP 128/72; PULSE 66; RESP 17; TEMP 97.3; O2SAT 98
--- NOTE | 2024-03-24 15:10 | ECG ---
[facility] Test Date: 2024-03-21 Test Time: 16:34:17 Pat Name: HANSA KEARNEY Department: Respiratoy Room: 0234 A Gender: M Financial Planner: leo : 1960 Requested By: LORENA GAINES Order Number: [id number] Reading MD: Ev Suero Measurements Intervals [place] Rate: 72 P: -4 TN: 164 QRS: 27 QRSD: 98 T: 29 QT: 428 QTc: 469 Interpretive Statements Sinus rhythm Electronically Signed On 03-26-2024 9:27:03 PST by Ev Suero Please click the below link to view image of tracing.
--- NOTE | 2024-03-24 15:10 | ECG ---
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
[2024-03-24 18:20] VITALS: BP 146/79; PULSE 78; RESP 17; TEMP 97.4; O2SAT 97
[2024-03-24 21:00] VITALS: BP 135/79; PULSE 73; RESP 19; TEMP 97.5; O2SAT 97
[2024-03-25] VITALS (7 sets, daily range): BP systolic 116–137; BP diastolic 70–84; PULSE 66–89; RESP 17–20; TEMP 97.3–98.5; O2SAT 94–98
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
[2024-03-25] MEDS: LIDOCAINE 1% (LOCAL ANESTH.) PF 5ml SDV ID ONE (16:30)
[2024-03-25] MEDS ORDERED: SODIUM CHLOR 0.9% PF (SALINE LOCK) 10ML VIAL/SYR IV SCH (22:00)
== END 2024-03-25 21:35 | DRG 315 ==
LOC: ER 00:01 → OVERFLOW 06:20 → EAST 14:11
PROVIDERS: ADMIT Family Medicine; ATTEND Family Medicine
PROC: 0R9K00Z Drainage of Left Shoulder Joint with Drainage Device, Open Approach (ICD-10-PCS; principal; 2024-03-22 09:38)
PROC: 02HV33Z Insertion of Infusion Device into Superior Vena Cava, Percutaneous Approach (ICD-10-PCS; 2024-03-25)
PROC: B548ZZA Ultrasonography of Superior Vena Cava, Guidance (ICD-10-PCS; 2024-03-25)
DX: M00.9 Pyogenic arthritis, unspecified (principal); L03.116 Cellulitis of left lower limb; B19.20 Unspecified viral hepatitis C without hepatic coma; L02.414 Cutaneous abscess of left upper limb; I10 Essential (primary) hypertension; M17.11 Unilateral primary osteoarthritis, right knee; J45.909 Unspecified asthma, uncomplicated; F17.210 Nicotine dependence, cigarettes, uncomplicated; Z83.3 Family history of diabetes mellitus; Z82.3 Family history of stroke; Z79.899 Other long term (current) drug therapy
CPT/HCPCS: 36415; 36569; 71045; 73200; 73221; 73700; 76937; 80053; 80202; 80307; 81001; 83540; 83550; 83605; 85025; 85610; 85652; 86141; 86706; 86850; 86900; 86901; 87040; 87070; 87075; 87077; 87081; 87186; 87205; 93005; 93306; 93970; G0378; J2250; J2405; J2704; J3490

== ENCOUNTER 2024-04-02 13:33 | Inpatient (IN) | payer MEDICAID ==
[~2024-04-02] VITALS: Ht 177.8 cm; Wt 96.8 kg
[~2024-04-02 13:33] MED LIST: BENA10TA16 PO; HYDR25TA4 PO; OMEP1CAP70
--- NOTE | 2024-04-02 14:20 | DVH ---
CHEST RADIOGRAPH Indication: SOB Technique: Single frontal view of the chest was obtained Comparison: XY CHEST XRAY 1 VIEW on DOS: 03/21/24 FINDINGS: Lines and Tubes: None Lungs: No focal consolidation. Pleura: No effusion. No pneumothorax. Cardiomediastinal contours: Unremarkable Bones: No acute osseous abnormality. IMPRESSION: 1. No acute cardiopulmonary disease.
[2024-04-02 14:23] LABS: Basophils # (auto) 0 10 ^3/uL (0-0.2); Basophils % (auto) 0.6 % (0.0-2.0); Eosinophils # (auto) 0.2 10 ^3/uL (0-0.8); Eosinophils % (auto) 4.1 % (0.0-7.0); Hematocrit 29.5 % (41.0-53.0); Hemoglobin 9.3 g/dL (13.5-17.5); Lymphocytes # (auto) 0.9 10 ^3/uL (0.4-5.4); Lymphocytes % (auto) 25.8 % (10.0-50.0); Mean Corpuscular Hemoglobin 22.8 pg (28.0-32.0); Mean Corpuscular Hgb Conc. 31.4 g/dL (32.0-36.0); Mean Corpuscular Volume 72.5 fL (80.0-100.0); Monocytes # (auto) 0.5 10 ^3/uL (0-1.3); Monocytes % (auto) 14.1 % (0.0-12.0); Neutrophils % (auto) 55.4 % (37.0-80.0); Nucleated Red Blood Cells % 0.3 %; Platelet Count (auto) 275 10^3/uL (140-450); Red Blood Cells 4.06 10^6/uL (4.5-5.90); Red Cell Distribution Width 18.6 % (11.8-14.3); White Blood Cell 3.6 10^3/uL (4.4-10.8)
[2024-04-02 14:28] LABS: Anion Gap 7 (5-15); Carbon Dioxide 22 mmol/L (20-31); Chloride 101 mmol/L (98-107)
[2024-04-02 14:29] LABS: Calcium 8.7 mg/dL (8.7-10.4)
[2024-04-02 14:34] LABS: BUN/Creatinine Ratio 18.1 (10.0-20.0); Blood Urea Nitrogen 17 mg/dL (9-23)
[2024-04-02 14:35] LABS: Glucose 134 mg/dL (74-106); Potassium 3.3 mmol/L (3.5-5.1); Sodium 130 mmol/L (136-145)
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
[2024-04-02 16:04] LABS: Urine Bacteria None Seen /hpf (None Seen)
[2024-04-02 16:26] LABS: Urine Blood 1+ /uL (Negative); Urine Clarity Clear (Clear); Urine Color Light-Yellow (Yellow); Urine Mucus FEW (None Seen); Urine Protein, UAD TRACE (Negative); Urine Specific Gravity 1.017 (1.001-1.035); Urine Squamous Epithelial Cell None Seen /hpf (<5); Urine Urobilinogen Normal (Negative); Urine WBC 2 /HPF (0-3)
[2024-04-02] MEDS: POTASSIUM CHL 20MEQ/100ML 100 ML IV ONE (19:27)
[2024-04-02] MEDS: POTASSIUM CHL 20 Meq TABLET PO ONE (19:32)
[2024-04-02] MEDS ORDERED: VANCOMYCIN PER PHARMACY 0 MG IV SCH (23:00)
--- NOTE | 2024-04-02 23:06 | DVHHPRES ---
History of Present Illness Resident Creating Document: BERENICE FLEMING RESIDENT Reason for Visit: Shortness of breath, anxiety and weakness History of Present Illness This is a 62-year-old male who comes into the ED with chief complain of shortness of Breath, anxiety and generalized weakness. He has a past medical history relevant for hypertension, polysubstance abuse, IV drug use, currently on methadone clinic, recent diagnosis of abscess of the left shoulder status post drainage in the OR, patient was sent to SNF for continuous IV antibiotics and just got released today. Patient states that for the last few days he has been experiencing shortness of breath, mild cough, episodes of anxiety which he feels pressured, agitated, over thinking. He also states having some mild chest tightness and nausea. He also mentions having generalized weakness, and states that he was told that he has a abnormal blood work. He currently denies any chest pain, significant shortness of breath, fevers, chills, abdominal pain, urinary symptoms. In the ED, patient received IV potassium, CBC noted moderate anemia, BMP revealed hypokalemia. Patient was admitted for further investigation and management. Cardiovascular: HTN ALCOHOL: occassional Drugs: Marijuana, Heroin, Other (Methamphetamine) Lives: Alone Review of Systems Constitutional: Yes: Weakness, Malaise; No: Fever, Chills, Sweats, Other Eyes: No: Pain, Vision change, Conjunctivae inflammation, Eyelid inflammation, Other, Redness ENT: No: Ear pain, Ear discharge, Nose pain, Nose discharge, Nose congestion, Mouth pain, Mouth swelling, Throat pain, Throat swelling, Other Respiratory: Cough, Shortness of breath; No: Dry, SOB with excertion, Wheezing, Hemoptysis, Pleuritic Pain, Sputum, Wheezing, Other Cardiovascular: No: Chest Pain, Palpitations, Orthopnea, Paroxysmal Noc. Dyspnea, Edema, Lt Headedness, Other Gastrointestinal: No: Nausea, Vomiting, Abdominal Pain, Diarrhea, Constipation, Melena, Hematochezia, Other Genitourinary: No Dysuria, No Frequency, No Incontinence, No Hematuria, No Retention, No Other Musculoskeletal: No: other, neck pain, shoulder pain, arm pain, back pain, hand pain, leg pain, foot pain Skin: No: Rash, Lesions, Jaundice, Bruising, Other Neurological: No: Weakness, Numbness, Incoordination, Change in speech, Confusion, Seizures, Other Allergies: Coded Allergies: Gabapentin (Verified Allergy, Unknown, 03/21/24) Medications Current Medications Medications Dose Ordered Sig/Gordy Route Start Time Stop Time Status Last Admin Dose Admin Methadone HCl 50 mg DAILY PO 04/03/24 10:00 UNV Vancomycin HCl 0 ml @ 0 mls/hr UD IV 04/02/24 23:00 UNV Ondansetron HCl 4 mg Q6HPRN PRN IV 04/02/24 23:00 UNV Benazepril HCl 10 mg DAILY PO 04/03/24 10:00 UNV Exam Vital Signs Vital Signs Date Time Temp Pulse Resp B/P (MAP) Pulse Ox O2 Delivery O2 Flow Rate FiO2 04/02/24 19:37 83 19 98 Room Air 04/02/24 19:37 98.6 137/81 (99) 98.6 General Appearance: Alert, Oriented X3, Cooperative, mild distress HEENT: Atraumatic, PERRLA, EOMI Respiratory: Other (Bilateral scattered crackles) Cardiovascular: Regular rate, Normal S1, Normal S2, No murmurs Abdominal: Normal bowel sounds, Soft, No tenderness, No hepatospenomegaly, No masses Extremities: No clubbing, No cyanosis, No edema, Normal pulses, No tenderness/ swelling Skin: No rashes, No breakdown, No significant lesion Neuro: Normal gait, Normal speech, Strength at 5/5 X4 ext, Normal tone, Sensation intact, Cranial nerves 3-12 NL Psych/Mental Status: Mental status NL Labs/Xrays Labs Test 04/02/24 14:38 04/02/24 13:52 Range/Units Urine Color Light-yellow Yellow Urine Clarity Clear Clear Urine pH 6.0 5.0-9.0 Urine Specific [place] 1.017 1.001-1.035 Urine Protein Trace H Negative Urine Ketones Negative Negative Urine Blood 1+ H Negative /uL Urine Nitrite Negative Negative Urine Bilirubin Negative Negative Urine Urobilinogen Normal Negative mg/dL Urine Leukocyte Esterase Negative Negative /uL Urine RBC 16 0 - 3 /hpf Urine Microscopic WBC 2 0-3 /HPF Urine Squamous Epithelial Cells None seen <5 /hpf Urine Bacteria None seen None Seen /hpf Urine Mucus Few None Seen Urine Glucose Normal Normal mg/dL White Blood Count 3.6 L 4.4-10.8 10^3/uL Red Blood Count 4.06 L 4.5-5.90 10^6/uL Hemoglobin 9.3 L 13.5-17.5 g/dL Hematocrit 29.5 L 41.0-53.0 % Mean Corpuscular Volume 72.5 L 80.0-100.0 fL Mean Corpuscular Hemoglobin 22.8 L 28.0-32.0 pg Mean Corpuscular Hemoglobin Concent 31.4 L 32.0-36.0 g/dL Red Cell Distribution Width 18.6 H 11.8-14.3 % Platelet Count 275 140-450 10^3/uL Mean Platelet Volume 7.2 6.9-10.8 fL Neutrophils (%) (Auto) 55.4 37.0-80.0 % Lymphocytes (%) (Auto) 25.8 10.0-50.0 % Monocytes (%) (Auto) 14.1 H 0.0-12.0 % Eosinophils (%) (Auto) 4.1 0.0-7.0 % Basophils (%) (Auto) 0.6 0.0-2.0 % Neutrophils # (Auto) 2.0 1.6-8.6 10 ^3/uL Lymphocytes # (Auto) 0.9 0.4-5.4 10 ^3/uL Monocytes # (Auto) 0.5 0-1.3 10 ^3/uL Eosinophils # (Auto) 0.2 0-0.8 10 ^3/uL Basophils # (Auto) 0 0-0.2 10 ^3/uL Nucleated Red Blood Cells 0.3 % Sodium Level 130 L 136-145 mmol/L Potassium Level 3.3 L 3.5-5.1 mmol/L Chloride Level 101 98-107 mmol/L Carbon Dioxide Level 22 20-31 mmol/L Anion Gap 7 5-15 Blood Urea Nitrogen 17 9-23 mg/dL Creatinine 0.94 0.700-1.30 mg/dL Glomerular Filtration Rate Calc 91 >90 mL/min BUN/Creatinine Ratio 18.1 10.0-20.0 Serum Glucose 134 H 74-106 mg/dL Calcium Level 8.7 8.7-10.4 mg/dL Assessment/Plan Assessment/Plan #Shortness of breath, rule out lower respiratory infection, possibly related to anemia Ordered COVID and flu test Chest x-ray show mild interstitial opacities, pending CT chest #Generalized weakness, rule out underlying infection, likely related to anemia, hypokalemia #Anemia, microcytic, hypochromic Ordered iron panel, ferritin, B12, folate, reticulocyte count, LDH Order stool occult blood Ferrous sulfate 325 mg p.o. q.d. IV Normal saline 1 L once #Hematuria, painless Order kidney ultrasound Consider CT urogram #Hypokalemia Monitor and replete #Anxiety disorder Monitor #Polysubstance abuse Continue methadone 50 mg p.o. q.d. Counseled on lifestyle modification Pending UDS #Current heavy smoker Counseled on lifestyle modifications #Cellulitis and ulcer on right forearm #History of chronic wound on right forearm Wound culture Wound consult Vancomycin IV #History of left shoulder abscess Unremarkable #Hypertension, controlled Benazepril 10 mg p.o. q.d. Goals of care were discussed for 30 minutes. Full code Case was discussed with Dr. Buchanan Plan discussed with: Patient My Orders Orders - BERENICE FLEMING RESIDENT Procedure Category Date Status Time Admit ADMIT 04/02/24 Transmitted 22:15 Notify Of Changes [facility] 04/02/24 In Process From Base 22:15 Hemoglobin & LAB 04/02/24 Logged Hematocrit 22:50 Comprehensive LAB 04/02/24 Logged Metabolic Panel 22:50 Magnesium LAB 04/02/24 Logged 22:50 PTPTT LAB 04/02/24 Logged 22:50 Drug Screen LAB 04/02/24 Logged 22:50 Iron Panel LAB 04/02/24 Logged 22:50 Ferritin LAB 04/02/24 Logged 22:50 Vitamin B12 LAB 04/02/24 Logged 22:50 Folate (Folic Acid) LAB 04/02/24 Logged 22:50 Reticulocyte Count LAB 04/02/24 Logged 22:50 Lactate Dehydrogenase LAB 04/02/24 Logged 22:50 Stool Occult Blood LAB 04/02/24 Logged 22:[address] 04/02/24 Logged 22:50 Sodium Chloride 0.9% PHA 04/02/24 Logged 23:00 Covid19 Antigen Rima LAB 04/02/24 Logged Rapid Influenza A&B LAB 04/02/24 Logged 22:50 Mrsa Screen MARTY 04/02/24 Logged 22:50 Clear Liq Diet DIET 04/03/24 Transmitted Breakfast Methadone Hcl Tablet PHA 04/03/24 Logged (Methadone Hcl Tabl 10:00 * Wound Consult CONS 04/02/24 Transmitted Wound Culture W/ Gs MARTY 04/02/24 Logged 22:50 Vancomycin Per PHA 04/02/24 Logged Pharmacy 23:00 Ondansetron Hcl PHA 04/02/24 Logged (Zofran) 23:00 Pt Request For Service PT 04/02/24 Logged 22:50 Benazepril Hcl Tablet PHA 04/03/24 Logged (Lotensin Tablet) 10:00 Date of Service: Apr 03, 2024 Billing Provider: ELKIN BUCHANAN MD Common Visit Codes: [id number] INP/OBS CARE (HIGH) BERENICE FLEMING RESIDENT Apr 02, 2024 23:06 ELKIN BUCHANAN MD Apr 06, 2024 15:41
[2024-04-02 23:43] LABS: Hemoglobin 8.8 g/dL (13.5-17.5)
[2024-04-02 23:46] LABS: Hematocrit 27.8 % (41.0-53.0)
[2024-04-03 00:02] LABS: % Iron Saturation 10.9 % (20-55); Alanine Aminotransferase 34 U/L (7-40); Anion Gap 7 (5-15); BUN/Creatinine Ratio 23.3 (10.0-20.0); Blood Urea Nitrogen 20 mg/dL (9-23); Calcium 8.7 mg/dL (8.7-10.4); Carbon Dioxide 22 mmol/L (20-31); Chloride 102 mmol/L (98-107); Glucose 106 mg/dL (74-106); Potassium 3.5 mmol/L (3.5-5.1)
[2024-04-03 00:03] LABS: INR 1.12 (0.9-1.15); Partial Thromboplastin Time 29.6 SEC (24.5-34.5); Prothrombin Time 11.7 sec (9.3-11.8)
[2024-04-03 00:04] LABS: Alkaline Phosphatase 142 U/L (46-116); Aspartate Aminotransferase 57 U/L (13-40); Bilirubin, Total 0.2 mg/dL (0.2-1.0); Magnesium 1.5 mg/dL (1.6-2.6); Sodium 131 mmol/L (136-145); Total Protein 9.5 g/dL (5.7-8.2)
[2024-04-03 00:06] LABS: Ferritin 14.1 ng/mL (22-322)
[2024-04-03 00:08] LABS: Folate (Folic Acid) 14.58 ng/mL (>5.38)
[2024-04-03] MEDS ORDERED: ONDANSETRON HCL 4 MG/2 ML VIAL IV PRN (01:00)
[2024-04-03 01:22] LABS: Rapid Influenza A Negative (Negative); Rapid Influenza B Negative (Negative)
[2024-04-03 01:23] LABS: COVID19 ANTIGEN SOFIA FIA NEGATIVE (NEGATIVE)
[2024-04-03] MEDS: POTASSIUM CHL 20 Meq TABLET PO ONE (03:16)
[2024-04-03] MEDS: FERROUS SULFATE 325mg EC TAB PO ONE (03:17)
[2024-04-03] MEDS: MAGNESIUM SULFATE 1GM/100ML 100 ML IV SCH (03:17)
[2024-04-03] MEDS: VANCOMYCIN 1GM/250ML KIT 250 ML IV SCH (03:17)
--- NOTE | 2024-04-03 04:23 | DVH ---
Procedure: CT CHEST WITHOUT CONTRAST Reason for study/Clinical History: sob Comparison Study: Chest radiograph performed on 04/02/2024. Exam Date: 04/02/2024 11:12 PM TECHNIQUE: Multidetector CT of the chest was performed from the lung apices to the upper abdomen with out the use of intravenous contract. Coronal and sagittal multiplanar reformats were performed. Radiation Dose Information: CT Dose: CTDI volume is 17.43 mGy. Dose-length product is 731.74 mGy*cm The dose indicators for CT are the volume Computed Tomography (CT) Dose Index (CTDIvol) and the Dose Length Product (DLP), and are measured in units of mGy and mGy-cm, respectively. These indicators are not patient dose, but values generated from the CT scanner acquisition factors. The report includes radiation exposure data for exposures received during this examination. FINDINGS: Support lines and tubes: There is a right central venous catheter with tip terminating in the superio r cavoatrial junction. Lower neck: Normal thyroid. Lungs: No focal consolidation. No suspicious pulmonary nodule. Central airways: Patent. Pleura: No pleural effusion. No pneumothorax. Heart/Vascular Structures: Normal heart size. No coronary artery disease. No pericardial effusion. No rmal caliber thoracic aorta and main pulmonary artery. Lymph Nodes: Increased number of left axillary lymph nodes which are enlarged measuring up to 1.5 cm in short axis. No mediastinal lymphadenopathy. No hilar lymphadenopathy Musculoskeletal: No acute osseous abnormality. Soft tissues: Normal. Upper abdomen: Limited portions of the upper abdomen show gallstones. Nodular contour of the liver. IMPRESSION: 1. No acute intrathoracic abnormality. 2. Left axillary lymphadenopathy. Etiology is unclear. 3. Gallstones. 4. Nodular contour of the liver suggestive of cirrhosis. Radiation optimization: All CT scans at this facility use at least one of these dose optimization collin hniques: automated exposure control mA and/or kV adjustment per patient size (includes targeted exam s where dose is matched to clinical indication) or iterative reconstruction.
[2024-04-03 04:39] LABS: Chloride 101 mmol/L (98-107); Potassium 3.9 mmol/L (3.5-5.1)
[2024-04-03 04:40] LABS: Anion Gap 8 (5-15); Calcium 8.7 mg/dL (8.7-10.4); Carbon Dioxide 20 mmol/L (20-31)
[2024-04-03 04:45] LABS: BUN/Creatinine Ratio 24.1 (10.0-20.0); Blood Urea Nitrogen 19 mg/dL (9-23); Glucose 96 mg/dL (74-106)
[2024-04-03 04:49] LABS: Basophils # (auto) 0 10 ^3/uL (0-0.2); Basophils % (auto) 0.4 % (0.0-2.0); Eosinophils # (auto) 0.2 10 ^3/uL (0-0.8); Eosinophils % (auto) 4.6 % (0.0-7.0); Hematocrit 27.8 % (41.0-53.0); Hemoglobin 8.8 g/dL (13.5-17.5); Lymphocytes # (auto) 1.1 10 ^3/uL (0.4-5.4); Lymphocytes % (auto) 25.6 % (10.0-50.0); Mean Corpuscular Hemoglobin 22.8 pg (28.0-32.0); Mean Corpuscular Hgb Conc. 31.7 g/dL (32.0-36.0); Mean Corpuscular Volume 72.1 fL (80.0-100.0); Monocytes # (auto) 0.6 10 ^3/uL (0-1.3); Monocytes % (auto) 13.5 % (0.0-12.0); Neutrophils # (auto) 2.4 10 ^3/uL (1.6-8.6); Neutrophils % (auto) 55.9 % (37.0-80.0); Nucleated Red Blood Cells % 0.1 %; Platelet Count (auto) 262 10^3/uL (140-450); Red Blood Cells 3.86 10^6/uL (4.5-5.90); Red Cell Distribution Width 18.5 % (11.8-14.3); White Blood Cell 4.4 10^3/uL (4.4-10.8)
[2024-04-03 04:51] LABS: Sodium 129 mmol/L (136-145)
[2024-04-03] MEDS: SODIUM CHLORIDE 0.9% 1,000 ML IV ONE (05:14)
--- NOTE | 2024-04-03 07:15 | ECG ---
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
[2024-04-03 07:17] LABS: Amphetamine Screen, Urine Neg (NEGATIVE)
[2024-04-03 07:18] LABS: Barbiturate Scree,Urine Neg (NEGATIVE); Benzodiazephine Screen, Urine Neg (NEGATIVE); Cannabinoid Screen, Urine Neg (NEGATIVE); Cocaine Screen, Urine Neg (NEGATIVE); Opiate Scree,Urine Neg (NEGATIVE); Phencyclidine Screen, Urine Neg (NEGATIVE)
--- NOTE | 2024-04-03 07:20 | DVH ---
EXAM: US Retroperitoneal Limited, Renal CLINICAL INDICATION: hematuria TECHNIQUE: Real-time limited ultrasound of the retroperitoneum with image documentation. COMPARISON: None FINDINGS: RIGHT KIDNEY: Right kidney measures up to 10.3 cm. Increased echogenicity bilaterally could repres ent renal medical parenchymal disease. No stones. No hydronephrosis. LEFT KIDNEY: Left kidney measures up to 11.9 cm. BLADDER: Layering echogenic material within the urinary bladder could be hematoma. OTHER FINDINGS: . . . .. IMPRESSION: 1. Layering echogenic material within the urinary bladder could be hematoma. 2. Increased echogenicity bilaterally could represent renal medical parenchymal disease.
[2024-04-03 08:16] LABS: Hepatitis B Surface Antibody Positive (Negative)
[2024-04-03 08:32] LABS: Hepatitis B Surface Antigen Negative (Negative)
[2024-04-03] MEDS: BENAZEPRIL HCL 10 MG TAB PO SCH (11:19)
[2024-04-03] MEDS: METHADONE HCL 10 MG TAB PO SCH (11:20)
--- NOTE | 2024-04-03 12:17 | DVHPNRES ---
Progress Note Date Seen: Apr 03, 2024 Resident Creating Document: RICHIE FOX RESIDENT Objective vital signs Vital Sign Date Time Temp Pulse Resp B/P (MAP) Pulse Ox O2 Delivery O2 Flow Rate FiO2 04/03/24 11:19 116/67 04/03/24 07:50 98.6 68 18 98 98.6 04/03/24 07:45 Room Air* 0 21 medications Current Medications Medications Dose Ordered Sig/Gordy Route Start Time Stop Time Status Last Admin Dose Admin Methadone HCl 50 mg DAILY PO 04/03/24 10:00 Vancomycin HCl 0 ml @ 0 mls/hr UD IV 04/02/24 23:00 Ondansetron HCl 4 mg Q6HPRN PRN IV 04/03/24 01:00 Benazepril HCl 10 mg DAILY PO 04/03/24 10:00 04/03/24 11:19 10 MG Ferrous Sulfate 325 mg DAILY PO 04/04/24 10:00 Vancomycin HCl 100 ml @ 100 mls/hr Q12H IV 04/03/24 15:00 laboratory and microbiology Laboratory Tests 04/03/24 04:11 Test 04/03/24 04:11 Range/Units Serum Glucose 96 74-106 mg/dL My Orders My Orders Orders - RICHIE FOX Procedure Category Date Status Time Cefepime 1 Gm PHA 04/03/24 Verified 14:00 RICHIE FOX Apr 03, 2024 12:17
[2024-04-03 12:50] VITALS: BP 115/61; PULSE 70; RESP 20; TEMP 97.3; O2SAT 97
[2024-04-03] MEDS: VANCOMYCIN 750MG KIT 100 ML IV SCH (15:00)
[2024-04-03 15:12] VITALS: BP 115/61; PULSE 62; RESP 20; TEMP 97.3; O2SAT 97
[2024-04-03] MEDS ORDERED: DOCU-265 PO (16:22)
[2024-04-03] MEDS ORDERED: HYDR25TA4 PO (16:22)
[2024-04-03] MEDS ORDERED: BENA10TA93 PO (16:22)
[2024-04-03] MEDS ORDERED: ENOX80IN8 SC (16:22)
[2024-04-03] MEDS ORDERED: [UNRECOGNIZED DRUG - CODE] IV (16:22)
[2024-04-03] MEDS ORDERED: METH-1214 PO (16:22)
[2024-04-03] MEDS ORDERED: BISA10SU45 RE (16:22)
[2024-04-03] MEDS ORDERED: CHOL20007 PO (16:22)
[2024-04-03] MEDS ORDERED: LORA-1121 PO (16:22)
[2024-04-03] MEDS ORDERED: ACET1CAP14 PO (16:22)
[2024-04-03] MEDS: CEFEPIME 1GM/ 50ML 50 ML IV SCH (16:28)
[2024-04-03 17:00] VITALS: BP 135/70; PULSE 55; RESP 18; TEMP 98.8; O2SAT 96
[2024-04-03 18:00] VITALS: BP 121/75; PULSE 55; RESP 17; TEMP 98.7; O2SAT 94
--- NOTE | 2024-04-03 18:06 | DVHDSRES ---
Discharge Summary Date of Admission Resident Creating Document: RICHIE FOX RESIDENT Apr 02, 2024 at 22:15 Date of Discharge: Apr 03, 2024 Admitting Diagnosis Generalized weakness likely secondary to anemia and hypokalemia Wounds: Non healing wound in the right forearm Labs/Diagnostic Data: Laboratory Results Test 04/03/24 07:17 04/03/24 06:50 04/03/24 04:14 04/03/24 04:11 Hepatitis B Surface Antigen Negative (Negative) Hepatitis B Surface Antibody Positive (Negative) Urine Opiates Screen Neg (NEGATIVE) Urine Fentanyl Screen Neg (NEGATIVE) Urine Barbiturates Screen Neg (NEGATIVE) Urine Phencyclidine Screen Neg (NEGATIVE) Urine Amphetamines Screen Neg (NEGATIVE) Urine Benzodiazepines Screen Neg (NEGATIVE) Urine Cocaine Screen Neg (NEGATIVE) Urine Cannabinoids Screen Neg (NEGATIVE) Hepatitis C Antibody Reactive (Negative) HIV (1&2) Antibody Negative (Negative) White Blood Count 4.4 10^3/uL (4.4-10.8) Red Blood Count 3.86 10^6/uL (4.5-5.90) Hemoglobin 8.8 g/dL (13.5-17.5) Hematocrit 27.8 % (41.0-53.0) Mean Corpuscular Volume 72.1 fL (80.0-100.0) Mean Corpuscular Hemoglobin 22.8 pg (28.0-32.0) Mean Corpuscular Hemoglobin Concent 31.7 g/dL (32.0-36.0) Red Cell Distribution Width 18.5 % (11.8-14.3) Platelet Count 262 10^3/uL (140-450) Mean Platelet Volume 7.0 fL (6.9-10.8) Neutrophils (%) (Auto) 55.9 % (37.0-80.0) Lymphocytes (%) (Auto) 25.6 % (10.0-50.0) Monocytes (%) (Auto) 13.5 % (0.0-12.0) Eosinophils (%) (Auto) 4.6 % (0.0-7.0) Basophils (%) (Auto) 0.4 % (0.0-2.0) Neutrophils # (Auto) 2.4 10 ^3/uL (1.6-8.6) Lymphocytes # (Auto) 1.1 10 ^3/uL (0.4-5.4) Monocytes # (Auto) 0.6 10 ^3/uL (0-1.3) Eosinophils # (Auto) 0.2 10 ^3/uL (0-0.8) Basophils # (Auto) 0 10 ^3/uL (0-0.2) Nucleated Red Blood Cells 0.1 % Sodium Level 129 mmol/L (136-145) Potassium Level 3.9 mmol/L (3.5-5.1) Chloride Level 101 mmol/L (98-107) Carbon Dioxide Level 20 mmol/L (20-31) Anion Gap 8 (5-15) Blood Urea Nitrogen 19 mg/dL (9-23) Creatinine 0.79 mg/dL (0.700-1.30) Glomerular Filtration Rate Calc 100 mL/min (>90) BUN/Creatinine Ratio 24.1 (10.0-20.0) Serum Glucose 96 mg/dL (74-106) Calcium Level 8.7 mg/dL (8.7-10.4) Test 04/03/24 00:00 04/02/24 23:27 04/02/24 14:38 Influenza Type A Antigen Negative (Negative) Influenza Type B Antigen Negative (Negative) SARS-CoV-2 Antigen (Rapid) Negative (NEGATIVE) Reticulocyte Count (auto) 1.53 % (0.5-1.5) Prothrombin Time 11.7 sec (9.3-11.8) Prothrombin Time INR 1.12 (0.9-1.15) Activated Partial Thromboplast Time 29.6 SEC (24.5-34.5) Magnesium Level 1.5 mg/dL (1.6-2.6) Iron Level 43 ug/dL (65-175) Total Iron Binding Capacity 394 ug/dL (250-425) Percent Iron Saturation 10.9 % (20-55) Ferritin 14.1 ng/mL (22-322) Total Bilirubin 0.2 mg/dL (0.2-1.0) Aspartate Amino Transferase (AST) 57 U/L (13-40) Alanine Aminotransferase (ALT) 34 U/L (7-40) Alkaline Phosphatase 142 U/L (46-116) Lactate Dehydrogenase 142 U/L (120-246) Total Protein 9.5 g/dL (5.7-8.2) Albumin 3.0 g/dL (3.2-4.8) Vitamin B12 Level 587 pg/mL (211-911) Folic Acid 14.58 ng/mL (>5.38) Urine Color Light-yellow (Yellow) Urine Clarity Clear (Clear) Urine pH 6.0 (5.0-9.0) Urine Specific [place] 1.017 (1.001-1.035) Urine Protein Trace (Negative) Urine Ketones Negative (Negative) Urine Blood 1+ /uL (Negative) Urine Nitrite Negative (Negative) Urine Bilirubin Negative (Negative) Urine Urobilinogen Normal mg/dL (Negative) Urine Leukocyte Esterase Negative /uL (Negative) Urine RBC 16 /hpf (0 - 3) Urine Microscopic WBC 2 /HPF (0-3) Urine Squamous Epithelial Cells None seen /hpf (<5) Urine Bacteria None seen /hpf (None Seen) Urine Mucus Few (None Seen) Urine Glucose Normal mg/dL (Normal) Other Laboratory Tests 04/03/24 04:11 Brief Hx & Hospital Course: This is a 62-year-old male who comes into the ED with chief complain of shortness of Breath, anxiety and generalized weakness. He has a past medical history relevant for hypertension, polysubstance abuse, IV drug use, currently on methadone clinic, recent diagnosis of abscess of the left shoulder status post drainage in the OR, patient was sent to SNF for continuous IV antibiotics and just got released today. Patient states that for the last few days he has been experiencing shortness of breath, mild cough, episodes of anxiety which he feels pressured, agitated, over thinking. He also states having some mild chest tightness and nausea. He also mentions having generalized weakness, and states that he was told that he has a abnormal blood work. He currently denies any chest pain, significant shortness of breath, fevers, chills, abdominal pain, urinary symptoms. Hospital course: Initial CBC revealed microcytic hypochromic anemia and BNP revealed hypokalemia and hypo magnesemia which were replenished . UA revealed microscopic hematuria and ultrasound of the kidney demonstrated echogenic material within the urinary bladder could be hematoma. Continuing the IV vancomycin 1 g 12 hourly and IV cefepime 1 g 8 hourly as prescribed before for possible septic arthritis and the patient was previously sent to SNF for continuation of IV antibiotics for 6 weeks until April 30/2025. Discharge plan was discussed with the patient and all questions were answered. Patient is being discharged to SNF. Discharge diagnosis: # Shortness of breath, possibly related to anemia # Ruled out community-acquired Gram-positive / Gram-negative pneumonia # Generalized weakness, likely related to anemia and hypokalemia # Possible chronic microcytic hypochromic anemia # Possible microscopic hematuria # Hypokalemia # Hypomagnesemia # Chronic anxiety disorder # Polysubstance abuse disorder # Nicotine dependence # Nonhealing wound right forearm # Essential hypertension Discharge plan Disposition: SNF Medications: In SNF paper Follow up: PCP in 1 week. Consults/Reason for consult No consultation was done Operations or Procedures CHEST RADIOGRAPH Indication: SOB Technique: Single frontal view of the chest was obtained Comparison: XY CHEST XRAY 1 VIEW on DOS: 03/21/24 FINDINGS: Lines and Tubes: None Lungs: No focal consolidation. Pleura: No effusion. No pneumothorax. Cardiomediastinal contours: Unremarkable Bones: No acute osseous abnormality. IMPRESSION: 1. No acute cardiopulmonary disease. Procedure: CT CHEST WITHOUT CONTRAST Reason for study/Clinical History: sob Comparison Study: Chest radiograph performed on 04/02/2024. Exam Date: 04/02/2024 11:12 PM TECHNIQUE: Multidetector CT of the chest was performed from the lung apices to the upper abdomen without the use of intravenous contract. Coronal and sagittal multiplanar reformats were performed. Radiation Dose Information: CT Dose: CTDI volume is 17.43 mGy. Dose-length product is 731.74 mGy*cm The dose indicators for CT are the volume Computed Tomography (CT) Dose Index (CTDIvol) and the Dose Length Product (DLP), and are measured in units of mGy and mGy-cm, respectively. These indicators are not patient dose, but values generated from the CT scanner acquisition factors. The report includes radiation exposure data for exposures received during this examination. FINDINGS: Support lines and tubes: There is a right central venous catheter with tip terminating in the superior cavoatrial junction. Lower neck: Normal thyroid. Lungs: No focal consolidation. No suspicious pulmonary nodule. Central airways: Patent. Pleura: No pleural effusion. No pneumothorax. Heart/Vascular Structures: Normal heart size. No coronary artery disease. No pericardial effusion. Normal caliber thoracic aorta and main pulmonary artery. Lymph Nodes: Increased number of left axillary lymph nodes which are enlarged measuring up to 1.5 cm in short axis. No mediastinal lymphadenopathy. No hilar lymphadenopathy Musculoskeletal: No acute osseous abnormality. Soft tissues: Normal. Upper abdomen: Limited portions of the upper abdomen show gallstones. Nodular contour of the liver. IMPRESSION: 1. No acute intrathoracic abnormality. 2. Left axillary lymphadenopathy. Etiology is unclear. 3. Gallstones. 4. Nodular contour of the liver suggestive of cirrhosis. EXAM: US Retroperitoneal Limited, Renal CLINICAL INDICATION: hematuria TECHNIQUE: Real-time limited ultrasound of the retroperitoneum with image documentation. COMPARISON: None FINDINGS: RIGHT KIDNEY: Right kidney measures up to 10.3 cm. Increased echogenicity bilaterally could represent renal medical parenchymal disease. No stones. No hydronephrosis. LEFT KIDNEY: Left kidney measures up to 11.9 cm. BLADDER: Layering echogenic material within the urinary bladder could be hematoma. OTHER FINDINGS: . . . .. IMPRESSION: 1. Layering echogenic material within the urinary bladder could be hematoma. 2. Increased echogenicity bilaterally could represent renal medical parenchymal disease. Condition at Discharge: Guarded Final Diagnosis/Problems List # Shortness of breath, possibly related to anemia # Ruled out community-acquired Gram-positive / Gram-negative pneumonia # Generalized weakness, likely related to anemia and hypokalemia # Possible chronic microcytic hypochromic anemia # Possible microscopic hematuria # Hypokalemia # Hypomagnesemia # Chronic anxiety disorder # Polysubstance abuse disorder # Nicotine dependence # Nonhealing wound right forearm # Essential hypertension Discharge Disposition: Retirement Facility Discharge Instruct/Medications Diet: Regular Activity: No Restrictions, As Tolerated Follow Up/Referral: pcp Medications: below Discharge Statement: "Patient was advised to return to the ER or call 911 if any headaches, dizziness, shortness of breath, chest pain, abdominal pain, bleeding, fevers, or worsening of medical condition. Patient was counseled about treatment plan, medications, possible side effects, patientverbalized understanding. All questions were answered to the best of my ability. This discharge took greater then 30 minutes in planning, reviewing documentation, counseling the patient, and discussing with other team members." ASSESSMENT ASSESSMENT Assessment volume depletion; hypomagnesemia; chronic anemia; microscopic hematuria RICHIE FOX RESIDENT Apr 03, 2024 18:06
[2024-04-03 20:00] VITALS: PULSE 71; RESP 19; O2SAT 96
[2024-04-03 21:00] VITALS: BP 127/69; PULSE 71; RESP 19; TEMP 97.6; O2SAT 96
[2024-04-03] MEDS: LORazepam 0.5 MG TAB PO PRN (21:38)
[2024-04-04] VITALS (7 sets, daily range): BP systolic 111–138; BP diastolic 64–84; PULSE 60–73; RESP 17–19; TEMP 97.2–98.1; O2SAT 93–100
[2024-04-04 08:44] LABS: Basophils # (auto) 0 10 ^3/uL (0-0.2); Eosinophils # (auto) 0.1 10 ^3/uL (0-0.8); Lymphocytes # (auto) 0.8 10 ^3/uL (0.4-5.4); Monocytes # (auto) 0.4 10 ^3/uL (0-1.3); White Blood Cell 2.6 10^3/uL (4.4-10.8)
[2024-04-04 08:49] LABS: Basophils % (auto) 0.5 % (0.0-2.0); Eosinophils % (auto) 4.9 % (0.0-7.0); Hematocrit 27.7 % (41.0-53.0); Hemoglobin 8.8 g/dL (13.5-17.5); Lymphocytes % (auto) 30.5 % (10.0-50.0); Mean Corpuscular Hemoglobin 23.1 pg (28.0-32.0); Mean Corpuscular Hgb Conc. 31.6 g/dL (32.0-36.0); Mean Corpuscular Volume 72.9 fL (80.0-100.0); Monocytes % (auto) 14.8 % (0.0-12.0); Neutrophils # (auto) 1.3 10 ^3/uL (1.6-8.6); Neutrophils % (auto) 49.3 % (37.0-80.0); Nucleated Red Blood Cells % 0.2 %; Platelet Count (auto) 233 10^3/uL (140-450); Red Cell Distribution Width 18.3 % (11.8-14.3)
[2024-04-04 08:50] LABS: Alanine Aminotransferase 32 U/L (7-40); Alkaline Phosphatase 87 U/L (46-116); Anion Gap 7 (5-15); BUN/Creatinine Ratio 16.3 (10.0-20.0); Blood Urea Nitrogen 13 mg/dL (9-23); Carbon Dioxide 22 mmol/L (20-31); Chloride 103 mmol/L (98-107); Glucose 76 mg/dL (74-106); Potassium 4.4 mmol/L (3.5-5.1)
[2024-04-04 08:57] LABS: Albumin 2.8 g/dL (3.2-4.8); Aspartate Aminotransferase 55 U/L (13-40); Bilirubin, Total 0.3 mg/dL (0.2-1.0); Sodium 132 mmol/L (136-145); Total Protein 8.7 g/dL (5.7-8.2)
[2024-04-04 09:36] LABS: Calcium 8.6 mg/dL (8.7-10.4)
[2024-04-04] MEDS: FERROUS SULFATE 325mg EC TAB PO SCH (10:57)
--- NOTE | 2024-04-04 18:19 | DVHPNRES ---
Progress Note Date Seen: Apr 04, 2024 Resident Creating Document: RICHIE FOX RESIDENT Medical Necessity Reason Pt with a Central, PICC or Fol: No Subjective Review of Systems This is a 62-year-old male who comes into the ED with chief complain of shortness of Breath, anxiety and generalized weakness. He has a past medical history relevant for hypertension, polysubstance abuse, IV drug use, currently on methadone clinic, recent diagnosis of abscess of the left shoulder status post drainage in the OR, patient was sent to SNF for continuous IV antibiotics and just got released today. Patient states that for the last few days he has been experiencing shortness of breath, mild cough, episodes of anxiety which he feels pressured, agitated, over thinking. He also states having some mild chest tightness and nausea. He also mentions having generalized weakness, and states that he was told that he has a abnormal blood work. He currently denies any chest pain, significant shortness of breath, fevers, chills, abdominal pain, urinary symptoms. Patient was seen and examined on the bedside. He is alert, oriented x3. The patient was discharged yesterday but staying in the hospital 1 more day because of the delaying in approval of SNF. Patient is going to SNF today Objective vital signs Vital Sign Date Time Temp Pulse Resp B/P (MAP) Pulse Ox O2 Delivery O2 Flow Rate FiO2 04/04/24 17:13 97.2 73 17 98 04/04/24 17:00 111/66 (81) 04/03/24 20:00 Room Air* 0 21 Total Intake and Output 04/03/24 04/03/24 04/04/24 15:00 23:00 07:00 Intake Total 550 ml 600 ml Output Total 700 ml Balance 550 ml -100 ml medications Current Medications Medications Dose Ordered Sig/Gordy Route Start Time Stop Time Status Last Admin Dose Admin Methadone HCl 50 mg DAILY PO 04/03/24 10:00 04/04/24 11:01 50 MG Vancomycin HCl 0 ml @ 0 mls/hr UD IV 04/02/24 23:00 Ondansetron HCl 4 mg Q6HPRN PRN IV 04/03/24 01:00 Benazepril HCl 10 mg DAILY PO 04/03/24 10:00 04/04/24 11:02 10 MG Ferrous Sulfate 325 mg DAILY PO 04/04/24 10:00 04/04/24 10:57 325 MG Vancomycin HCl 100 ml @ 100 mls/hr Q12H IV 04/03/24 15:00 04/04/24 15:40 100 MLS/HR Cefepime HCl 50 ml @ 12.5 mls/hr Q8HR IV 04/03/24 14:00 04/04/24 13:43 12.5 MLS/HR Lorazepam 0.5 mg Q6HP PRN PO 04/03/24 20:30 04/04/24 13:47 0.5 MG Examination Physical examination: General Appearance: Alert, Oriented X3, Cooperative, No acute distress HEENT: Atraumatic, PERRLA, EOMI, Mucous membrane moist/pink Respiratory: Clear to auscultation, Normal air movement Cardiovascular: Regular rate, Normal S1, Normal S2, No murmurs, no chest wall tenderness Abdominal: Normal bowel sounds, Soft, No tenderness, No hepatospenomegaly, No masses Extremities: Nonhealing wound in the right forearm, No clubbing, No cyanosis, No edema, Normal pulses. Skin: No rashes, No breakdown, No significant lesion Neuro: Normal gait, Normal speech, Strength at 5/5 X4 ext, Normal tone, Sensation intact, Cranial nerves 3-12 NL, Reflexes 2+ Psych/Mental Status: Mental status NL, Mood NL laboratory and microbiology Laboratory Tests 04/04/24 07:04 Test 04/04/24 07:04 Range/Units Serum Glucose 76 74-106 mg/dL Microbiology Date/Time Source Procedure Growth Status 04/03/24 00:00 Arm Gram Stain - Final Resulted 04/03/24 00:00 Arm Wound Culture - Preliminary Resulted Problem List/Assessment/Plan Problem List/Assessment/Plan Assessment and plan: #Shortness of breath, ruled out lower respiratory infection, possibly related to anemia Ordered COVID and flu test Chest x-ray show mild interstitial opacities CT chest showed no acute cardiothoracic abnormality. #Generalized weakness, rule out underlying infection, likely related to anemia, hypokalemia #Anemia, microcytic, hypochromic -Ferrous sulfate 325 mg p.o. q.d. -IV Normal saline 1 L once # Possible microscopic Hematuria, painless - Kidney U/S revealed echogenic debris in the bladder possible hematoma - Outpatient Urology follow up #Hypokalemia - Replenished #Anxiety disorder -Monitor #Polysubstance abuse Continue methadone 50 mg p.o. q.d. Counseled on lifestyle modification UDS negative #Current heavy smoker Counseled on lifestyle modifications #Cellulitis and ulcer on right forearm #History of chronic wound on right forearm Wound culture Wound consult Vancomycin as per pharmacy daily and IV cefepime 1 g Q 8 hours #History of left shoulder abscess, s/p I&D Unremarkable #Hypertension, controlled Benazepril 10 mg p.o. q.d. Goals of care were discussed for 30 minutes. Full code Plan discussed with Dr. Martins Plan discussed with: Patient, Other My Orders My Orders Orders - RICHIE FOX Procedure Category Date Status Time Cleanse Wound With MELO 04/04/24 In Process Wound Clean 11:22 RICHIE FOX RESIDENT Apr 04, 2024 18:19
== END 2024-04-04 18:13 | DRG 383 ==
LOC: EDBD 13:33 → ER 13:33 → OVERFLOW 22:15 → WEST WING 04-03 17:34
PROVIDERS: ADMIT Student in an Organized Health Care Education/Training Program; ATTEND Emergency Medicine
DX: L03.113 Cellulitis of right upper limb (principal); D50.0 Iron deficiency anemia secondary to blood loss (chronic); E83.42 Hypomagnesemia; F17.210 Nicotine dependence, cigarettes, uncomplicated; E86.9 Volume depletion, unspecified; E87.6 Hypokalemia; I10 Essential (primary) hypertension; R31.9 Hematuria, unspecified; L98.498 Non-pressure chronic ulcer of skin of other sites with other specified severity; Z20.822 Contact with and (suspected) exposure to COVID-19; S51.801A Unspecified open wound of right forearm, initial encounter; X58.XXXA Exposure to other specified factors, initial encounter; F41.9 Anxiety disorder, unspecified; Z88.8 Allergy status to other drugs, medicaments and biological substances; Z79.899 Other long term (current) drug therapy; Y93.89 Activity, other specified; Y92.89 Other specified places as the place of occurrence of the external cause; Y99.8 Other external cause status
CPT/HCPCS: 36415; 71045; 71250; 76775; 80048; 80053; 80307; 81001; 82607; 82728; 82746; 83540; 83550; 83615; 83735; 85014; 85018; 85025; 85045; 85610; 85730; 86703; 86706; 86803; 87081; 87205; 87340; 87426; 87804; 93005; 97116; 97163; 97530; G0378; J2405

== ENCOUNTER 2024-04-08 20:47 | Emergency (ER) | payer MEDICAID ==
[~2024-04-08] VITALS: Ht 177.8 cm; Wt 88.6 kg
[~2024-04-08 20:47] MED LIST changes: +ACET1CAP14 PO; +BENA10TA93 PO; +BISA10SU45 RE; +CHOL20007 PO; +DOCU-265 PO; +ENOX80IN8 SC; +LORA-1121 PO; +METH-1214 PO; +[UNRECOGNIZED DRUG - CODE] IV
--- NOTE | 2024-04-08 21:25 | ED.PDOC ---
HPI Comments 63 year old male presents to the ED with a chief complaint of palpitations onset today around 19:00. Patient states he was laying down around 19:00, when he began experiencing palpitations with shortness of breath, noticed it has been intermittent since then. Patient has a PMHx of osteomyelitis LT leg, HTN. Abscess LT shoulder, I&D was done in this hospital about 1 month ago. Denies chest pain, fever, abdominal pain, nausea, vomiting, diarrhea, headache, dizziness. No other symptoms or modifying factors present at this time. Chief Complaint: Palpitations Time Seen by MD: 21:09 Primary Care Provider: SHARRI Reviewed Notes: Medications, Allergies Allergies: Coded Allergies: Gabapentin (Verified Allergy, Unknown, 03/21/24) Home Meds Active Scripts Benazepril Hcl (LOTENSIN TABLET) 10 Mg Tb, 10 MG PO DAILY for 30 Days, #30 TAB Prov:ANITA LA 03/21/24 Hydrochlorothiazide (Hydrochlorothiazide) 25 Mg Tab, 1 TAB PO DAILY for 30 Days, #30 TAB 5 Refills Prov:ANITA LA 03/21/24 Reported Medications Methadone Hcl (METHADONE HCL TABLET) 10 Mg Tb, 1 TAB PO DAILY 04/03/24 Hydrochlorothiazide (Hydrochlorothiazide) 25 Mg Tab, 25 MG PO DAILY for 30 Days, MG 04/03/24 Enoxaparin Sodium (Enoxaparin Sodium) 80 Mg/0.8 Ml Inj, 40 MG SC DAILY, INJ 04/03/24 Bisacodyl (Dulcolax) 10 Mg Sup, 10 MG RE Q4HPRN PRN for FOR CONSTIPATION, SUPP 04/03/24 Docusate Sodium (Docusate Sodium) 100 Mg Cap, 100 MG PO BID, CAP 04/03/24 Cholecalciferol (VITAMIN D3) 2,000 Unit Tab, 0.5 TAB PO DAILY 04/03/24 Cefepime Hcl And Dextrose (Cefepime) 1 Gm Inj, 1 GM IV Q8HR, INJ 04/03/24 Benazepril HCl (Benazepril Hydrochloride) 10 Mg Tab, 10 MG PO DAILY 04/03/24 Lorazepam (ATIVAN TABLET) 0.5 Mg Tb, 2 TAB PO PRN PRN for ANXIETY 04/03/24 Acetaminophen (Tylenol) 325 Mg Cap, 650 MG PO, CAP 04/03/24 Omeprazole (Omeprazole Dr) 20 Mg Cap, 1 DAILY 03/21/24 Information Source: Patient Mode of Arrival: Ambulatory Severity: Moderate Timing: Hours Duration: Intermittent Prehospital treatment: None Radiation: No Radiation Quality: Other (PALPITATION) Cardiac Risk Factors: HTN PE Risk Factors: None History of: None Associated Signs and Symptoms: SOB, Palpitations Past Medical History PAST MEDICAL HISTORY: HTN, Liver Surgical History: Tonsillectomy Family History Family History: No family hx of DM, No family hx of Heart shannen, No family hx of HTN Social History Smoker: Cigarettes, Greater Than 1 Pack/Day Alcohol: Sober Drugs: Heroin Lives In: Home Constitutional: denies: chills, diaphoresis, fatigue, fever, malaise, sweats, weakness, others EENTM: denies: blurred vision, double vision, ear bleeding, ear discharge, ear drainage, ear pain, ear ringing, eye pain, eye redness, hearing loss, mouth pain, mouth swelling, nasal discharge, nose bleeding, nose congestion, nose pain, photophobia, tearing, throat pain, throat swelling, voice changes, others Respiratory: reports: shortness of breath; denies: cough, hemoptysis, orthopnea, SOB at rest, SOB with excertion, stridor, wheezing, others Cardiovascular: reports: palpitations; denies: chest pain, dizzy spells, diaphoresis, Dyspnea on exertion, edema, irregular heart beat, left arm pain, lightheadedness, PND, syncope, others Gastrointestinal: denies: abdomen distended, abdominal pain, blood streaked bowels, constipated, diarrhea, dysphagia, difficulty swallowing, hematemesis, me faby, nausea, poor appetite, poor fluid intake, rectal bleeding, rectal pain, vomiting, others Genitourinary: denies: burning, dysuria, flank pain, frequency, hematuria, incontinence, penile discharge, penile sore, pain, testicle pain, testicle swelling, urgency, others Neurological: denies: dizziness, fainting, headache, left sided numbness, left sided weakness, numbness, paresthesia, pre-existing deficit, right sided numbness, right sided weakness, seizure, speech problems, tingling, tremors, weakness, others Musculoskeletal: denies: back pain, gout, joint pain, joint swelling, muscle pain, muscle stiffness, neck pain, others Integumetry: denies: bruises, change in color, change in hair/nails, dryness, laceration, lesions, lumps, rash, wounds, others Allergic/Immunocompromised: denies: Difficulty Healing, Frequent Infections, Hives, Itching, others Hematologic/Lymphatic: denies: anemia, blood clots, easy bleeding, easy bruising, swollen glands, others Endocrine: denies: excessive hunger, excessive sweating, excessive thirst, excessive urination, flushing, intolerance to cold, intolerance to heat, unexplained weight gain, unexplained weight loss, others Psychiatric: denies: anxiety, bipolar disorder, depression, hopeless, panic disorder, schizophrenia, sleepless, suicidal, others All Other Systems: Reviewed and Negative Physical Exam General Appearance: No Apparent Distress HEENT: Other (Pupils and face symmetric, moist mucous membranes) Neck: Full Range of Motion, Normal Inspection Respiratory: Lungs Clear, No Accessory Muscle Use, No Respiratory Distress, Normal Breath Sounds Cardiovascular: No Edema, No JVD, Regular Rate/Rhythm Breast Exam: Deferred Gastrointestinal: Non Tender, Soft Genitalia: Deferred Pelvic: Deferred Rectal: Deferred Extremities: Normal range of motion, Non-tender, No pedal edema Neurologic: Alert (Oriented x4), Normal Affect, Normal Mood, Other (Ambulatory without difficulty. No gross focal deficit.) Cerebellar Function: NOT DONE Reflexes: NOT DONE Skin: Dry, Normal Color, Warm Lymphatic: NOT DONE EKG EKG #1: Comments Sinus rhythm, rate 65, normal intervals, normal axis, normal QRS, no ST/T changes. EKG #2: Comments Sinus rhythm, rate 65, normal intervals, normal axis, normal QRS, no ST/T changes. No significant change from previous EKG Was a procedure done? Was a procedure done?: No CP Differential Dx Differential Diagnosis: Angina, Anxiety / Panic Attack, Electrolyte Disorder, Heart Failure, GA, Pulmonary Embolus X-Ray, Labs, Meds, VS Vital Signs Date Time Temp Pulse Resp B/P (MAP) Pulse Ox O2 Delivery O2 Flow Rate FiO2 04/09/24 00:13 89 19 100 Room Air* 0 21 04/09/24 00:12 98.6 89 19 143/79 (100) 100 98.6 04/08/24 22:05 65 04/08/24 21:03 97.4 65 15 136/86 (103) 97 04/08/24 20:55 65 Lab Test 04/08/24 22:30 04/08/24 21:40 Range/Units Troponin I High Sensitivity < 3 L < 3 L </=54 ng/L White Blood Count 3.5 #L 4.4-10.8 10^3/uL Red Blood Count 3.82 L 4.5-5.90 10^6/uL Hemoglobin 8.6 L 13.5-17.5 g/dL Hematocrit 27.9 L 41.0-53.0 % Mean Corpuscular Volume 72.9 L 80.0-100.0 fL Mean Corpuscular Hemoglobin 22.6 L 28.0-32.0 pg Mean Corpuscular Hemoglobin Concent 30.9 L 32.0-36.0 g/dL Red Cell Distribution Width 19.0 H 11.8-14.3 % Platelet Count 227 140-450 10^3/uL Mean Platelet Volume 7.4 6.9-10.8 fL Neutrophils (%) (Auto) 58.7 37.0-80.0 % Lymphocytes (%) (Auto) 29.2 10.0-50.0 % Monocytes (%) (Auto) 9.2 0.0-12.0 % Eosinophils (%) (Auto) 2.5 0.0-7.0 % Basophils (%) (Auto) 0.4 0.0-2.0 % Neutrophils # (Auto) 2.1 1.6-8.6 10 ^3/uL Lymphocytes # (Auto) 1.0 0.4-5.4 10 ^3/uL Monocytes # (Auto) 0.3 0-1.3 10 ^3/uL Eosinophils # (Auto) 0.1 0-0.8 10 ^3/uL Basophils # (Auto) 0 0-0.2 10 ^3/uL Nucleated Red Blood Cells 0.0 % Prothrombin Time 12.0 H 9.3-11.8 sec Prothrombin Time INR 1.15 0.9-1.15 Activated Partial Thromboplast Time 29.4 24.5-34.5 SEC Sodium Level 133 L 136-145 mmol/L Potassium Level 4.1 3.5-5.1 mmol/L Chloride Level 103 98-107 mmol/L Carbon Dioxide Level 22 20-31 mmol/L Anion Gap 8 5-15 Blood Urea Nitrogen 19 9-23 mg/dL Creatinine 0.71 0.700-1.30 mg/dL Glomerular Filtration Rate Calc 103 >90 mL/min BUN/Creatinine Ratio 26.8 H 10.0-20.0 Serum Glucose 94 74-106 mg/dL Calcium Level 8.9 8.7-10.4 mg/dL B-Type Natriuretic Peptide 98.60 0-100 pg/mL X-Ray, Labs, Meds, VS Comment 63-year-old male with a history of hypertension and liver disease complaining of intermittent palpitations Vitals remarkable for temperature 97.4. Heart rate is normal at 65 Exam unremarkable Rhythm strip independently interpreted by me: Sinus rhythm, rate 65, no ectopy. EKG x2 normal Chest x-ray one view: Independently interpreted by me. No acute disease. Cardiac silhouette normal size, no definite infiltrate or effusion, normal mediastinal width, grossly normal bony thorax, no free air, no pneumothorax. CBC remarkable for WBC 3.5, hemoglobin 8.6, hematocrit 27.9, platelets 227, basic metabolic panel remarkable for sodium 133, coag panel remarkable for PT 12, BNP and serial troponins unremarkable for any abnormality of acute significance Patient treated with the following in the ED: 1 L 0.9 normal saline IV bolus was ordered, however IV access could not be obtained despite multiple attempts. The patient declined further attempts. He is asymptomatic, so still may be discharged without the IV bolus. On re-evaluation, patient is resting comfortably with stable vitals. He is not tachycardic or having palpitations. He is not short of breath, and oxygen saturation is normal on room air. Patient appears stable for discharge with close outpatient follow-up with his primary physician for referral to a market development analyst for further evaluation. Time of 1ST Reevaluation: 21:39 Reevaluation 1ST: Unchanged Patient Education/Counseling: Diagnosis, Treatment, Prognosis Family Education/Counseling: No Family Present Additional Information The following tests were ordered, and results were reviewed by me: TROP-x3, EKG -x3, PTPTT, CBC, CMP, BNP, BMP I discussed treatment and results with medical personnel and: patient Departure 1 Departure Time of Disposition: 23:20 Impression: Primary Impression: Palpitations Disposition: 01 HOME / SELF CARE / HOMELESS Condition: Stable Additional Instructions: Your blood tests showed that you are anemic. Your heart tests were normal. Your EKGs were normal. Your chest x-ray was unremarkable. Follow-up with your primary doctor in 1-2 days for referral to a market development analyst for further evaluation of your palpitations. Discharged With: Self Critical Care Note Critical Care Time?: No Stability Stability form required: No Heart Score Heart Score: Heart Score Response (Comments) Value History N/A 0 EKG N/A 0 Age N/A 0 Risk Factors N/A 0 Troponin N/A 0 Total 0 I personally scribed for LENORE ALFRED MD ([email or web address]) on 04/08/24 at 21:25. Electronically submitted by Gale Gupta ([email or web address]). I personally scribed for LENORE ALFRED MD ([email or web address]) on 04/08/24 at 22:06. Electronically submitted by Gale Gupta ([email or web address]). LENORE ALFRED MD Apr 08, 2024 21:25
[2024-04-08 22:04] LABS: Basophils # (auto) 0 10 ^3/uL (0-0.2); Basophils % (auto) 0.4 % (0.0-2.0); Eosinophils # (auto) 0.1 10 ^3/uL (0-0.8); Monocytes # (auto) 0.3 10 ^3/uL (0-1.3); Neutrophils # (auto) 2.1 10 ^3/uL (1.6-8.6); White Blood Cell 3.5 10^3/uL (4.4-10.8)
[2024-04-08 22:06] LABS: Eosinophils % (auto) 2.5 % (0.0-7.0); Hematocrit 27.9 % (41.0-53.0); Hemoglobin 8.6 g/dL (13.5-17.5); Lymphocytes % (auto) 29.2 % (10.0-50.0); Mean Corpuscular Hemoglobin 22.6 pg (28.0-32.0); Mean Corpuscular Hgb Conc. 30.9 g/dL (32.0-36.0); Mean Corpuscular Volume 72.9 fL (80.0-100.0); Monocytes % (auto) 9.2 % (0.0-12.0); Neutrophils % (auto) 58.7 % (37.0-80.0); Platelet Count (auto) 227 10^3/uL (140-450); Red Blood Cells 3.82 10^6/uL (4.5-5.90)
[2024-04-08 22:09] LABS: Chloride 103 mmol/L (98-107); Potassium 4.1 mmol/L (3.5-5.1)
[2024-04-08 22:15] LABS: Calcium 8.9 mg/dL (8.7-10.4); Glucose 94 mg/dL (74-106)
[2024-04-08 22:16] LABS: BUN/Creatinine Ratio 26.8 (10.0-20.0); Blood Urea Nitrogen 19 mg/dL (9-23)
[2024-04-08 22:23] LABS: Carbon Dioxide 22 mmol/L (20-31)
[2024-04-08 22:26] LABS: INR 1.15 (0.9-1.15); Partial Thromboplastin Time 29.4 SEC (24.5-34.5)
[2024-04-08 22:28] LABS: Sodium 133 mmol/L (136-145)
[2024-04-08 23:09] LABS: Anion Gap 8 (5-15)
--- NOTE | 2024-04-09 | DVH ---
CHEST RADIOGRAPH Indication: palpitations Technique: Single frontal view of the chest was obtained COMPARISON: Chest AP 04/02/24 FINDINGS: Lines and Tubes: None Lungs: Clear Pleura: No effusion. No pneumothorax. Cardiomediastinal contours: Unremarkable IMPRESSION: No abnormality demonstrated.
[2024-04-09 00:12] VITALS: BP 143/79; TEMP 98.6
[2024-04-09 00:13] VITALS: PULSE 89; RESP 19; O2SAT 100
[2024-04-09] MEDS: SODIUM CHLORIDE 0.9% 1,000 ML IV ONE (00:19)
--- NOTE | 2024-04-09 10:40 | ECG ---
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
--- NOTE | 2024-04-09 10:41 | ECG ---
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
== END 2024-04-09 00:28 | disposition home or self-care (01) ==
LOC: ER 20:47
DX: R00.2 Palpitations (principal); I10 Essential (primary) hypertension; F17.210 Nicotine dependence, cigarettes, uncomplicated; Z90.89 Acquired absence of other organs; Z79.899 Other long term (current) drug therapy; Z88.8 Allergy status to other drugs, medicaments and biological substances
CPT/HCPCS: 36415; 71045; 80048; 83880; 84484; 85025; 85610; 85730; 93005

== ENCOUNTER 2024-04-19 18:14 | Emergency (ER) | payer MEDICAID ==
[~2024-04-19] VITALS: Ht 177.8 cm; Wt 90.6 kg
[2024-04-19 19:38] VITALS: BP 146/80; PULSE 69; RESP 20; O2SAT 97
--- NOTE | 2024-04-19 19:46 | ED.PDOC ---
History of Present Illness HPI Comments 63 y/o M presents with c/o blurry vision for 3-4 weeks. Patient endorses on unchanging blurry vision to his right eye, with associated "flashes" to his right periphery, for the past 2x months. He comments on no associated pain or recent preceding trauma and admits to prescription glasses use. Patient reports no consult with his primary care or sales merchandising specialist regarding symptoms, yet. Time Seen by MD: 19:30 Primary Care Provider: SHARRI Haines Notes: Nurses Notes, Medications, Allergies Allergies: Coded Allergies: Gabapentin (Verified Allergy, Unknown, 03/21/24) Home Meds Active Scripts Benazepril Hcl (LOTENSIN TABLET) 10 Mg Tb, 10 MG PO DAILY for 30 Days, #30 TAB Prov:ANITA LA 03/21/24 Hydrochlorothiazide (Hydrochlorothiazide) 25 Mg Tab, 1 TAB PO DAILY for 30 Days, #30 TAB 5 Refills Prov:ANITA LA 03/21/24 Reported Medications Methadone Hcl (METHADONE HCL TABLET) 10 Mg Tb, 1 TAB PO DAILY 04/03/24 Hydrochlorothiazide (Hydrochlorothiazide) 25 Mg Tab, 25 MG PO DAILY for 30 Days, MG 04/03/24 Enoxaparin Sodium (Enoxaparin Sodium) 80 Mg/0.8 Ml Inj, 40 MG SC DAILY, INJ 04/03/24 Bisacodyl (Dulcolax) 10 Mg Sup, 10 MG RE Q4HPRN PRN for FOR CONSTIPATION, SUPP 04/03/24 Docusate Sodium (Docusate Sodium) 100 Mg Cap, 100 MG PO BID, CAP 04/03/24 Cholecalciferol (VITAMIN D3) 2,000 Unit Tab, 0.5 TAB PO DAILY 04/03/24 Cefepime Hcl And Dextrose (Cefepime) 1 Gm Inj, 1 GM IV Q8HR, INJ 04/03/24 Benazepril HCl (Benazepril Hydrochloride) 10 Mg Tab, 10 MG PO DAILY 04/03/24 Lorazepam (ATIVAN TABLET) 0.5 Mg Tb, 2 TAB PO PRN PRN for ANXIETY 04/03/24 Acetaminophen (Tylenol) 325 Mg Cap, 650 MG PO, CAP 04/03/24 Omeprazole (Omeprazole Dr) 20 Mg Cap, 1 DAILY 03/21/24 Information Source: Patient Mode of Arrival: Ambulatory Severity: Moderate Timing: Months Duration: Since onset Prehospital treatment: None Past Medical History PAST MEDICAL HISTORY: HTN, Liver Surgical History: Tonsillectomy Family History Family History: No family hx of DM, No family hx of Heart shannen, No family hx of HTN Social History Smoker: Cigarettes, Greater Than 1 Pack/Day Alcohol: Sober Drugs: Heroin Lives In: Home Constitutional: denies: chills, diaphoresis, fatigue, fever, malaise, sweats, weakness, others EENTM: reports: blurred vision; denies: double vision, ear bleeding, ear discharge, ear drainage, ear pain, ear ringing, eye pain, eye redness, hearing loss, mouth pain, mouth swelling, nasal discharge, nose bleeding, nose congestion, nose pain, photophobia, tearing, throat pain, throat swelling, voice changes, others Respiratory: denies: cough, hemoptysis, orthopnea, SOB at rest, shortness of breath, SOB with excertion, stridor, wheezing, others Cardiovascular: denies: chest pain, dizzy spells, diaphoresis, Dyspnea on exertion, edema, irregular heart beat, left arm pain, lightheadedness, palpitations, PND, syncope, others Gastrointestinal: denies: abdomen distended, abdominal pain, blood streaked bowels, constipated, diarrhea, dysphagia, difficulty swallowing, hematemesis, melena, nausea, poor appetite, poor fluid intake, rectal bleeding, rectal pain, vomiting, others Genitourinary: denies: burning, dysuria, flank pain, frequency, hematuria, incontinence, penile discharge, penile sore, pain, testicle pain, testicle swelling, urgency, others Neurological: denies: dizziness, fainting, headache, left sided numbness, left sided weakness, numbness, paresthesia, pre-existing deficit, right sided numbnes s, right sided weakness, seizure, speech problems, tingling, tremors, weakness, others Musculoskeletal: denies: back pain, gout, joint pain, joint swelling, muscle pain, muscle stiffness, neck pain, others Integumetry: denies: bruises, change in color, change in hair/nails, dryness, laceration, lesions, lumps, rash, wounds, others Allergic/Immunocompromised: denies: Difficulty Healing, Frequent Infections, Hives, Itching, others Hematologic/Lymphatic: denies: anemia, blood clots, easy bleeding, easy bruising, swollen glands, others Endocrine: denies: excessive hunger, excessive sweating, excessive thirst, excessive urination, flushing, intolerance to cold, intolerance to heat, unexplained weight gain, unexplained weight loss, others Psychiatric: denies: anxiety, bipolar disorder, depression, hopeless, panic disorder, schizophrenia, sleepless, suicidal, others All Other Systems: Reviewed and Negative (comprehensive overview of systems negative unless otherwise stated in HPI) Physical Exam General Appearance: No Apparent Distress, Normal HEENT: Normal ENT Inspection, Pharynx Normal, TMs Normal, Other (right retina background is normal; right eye movement is intact, no sclera injections; no photophobia, no hyphema, no ciliary injection, no lacrimation, no proptosis, globe is soft and nontender. we do not have a tonopen, as it is in for repair) Neck: Full Range of Motion, Non-Tender, Normal, Normal Inspection Respiratory: Chest Non-Tender, Lungs Clear, No Accessory Muscle Use, No Respiratory Distress, Normal Breath Sounds Cardiovascular: No Edema, No JVD, No Murmur, No Gallop, Normal Peripheral Pulses, Regular Rate/Rhythm Breast Exam: Deferred Gastrointestinal: No Organomegaly, Non Tender, No Pulsatile Mass, Normal Bowel Sounds, Soft Genitalia: Deferred Pelvic: Deferred Rectal: Deferred Extremities: No calf tenderness, Normal capillary refill, Normal inspection, Normal range of motion, Non-tender, No pedal edema Musculoskeletal : Apperance: Normal Neurologic: Alert, nurse receptionist II-XII nml as Tested, No Motor Deficits, Normal Affect, Normal Mood, No Sensory Deficits Cerebellar Function: Normal Reflexes: Normal Skin: Dry, Normal Color, Warm Lymphatic: No Adenopathy Was a procedure done? Was a procedure done?: No Differential Dx Considerations may include: conjunctivitis, amblyopia, unilateral optic neuropathy, cataract, glaucoma, iritis, retinal detachment, retinal vein occlusion, retinal artery occlusion X-Ray, Labs, Meds, VS Vital Signs Date Time Temp Pulse Resp B/P (MAP) Pulse Ox O2 Delivery O2 Flow Rate FiO2 04/19/24 19:38 97.7 69 20 146/80 (102) 97 Time of 1ST Reevaluation: 20:00 Reevaluation 1ST: Unchanged Patient Education/Counseling: Diagnosis, Treatment, Prognosis, Need For Follow Up Family Education/Counseling: No Family Present Additional Information since pt's symptoms are stable for the last 2 months, and we do not have braider setter, pt decided to go "down the hill" to a facility with ophthalmology to be seen Departure 1 Departure Time of Disposition: 20:36 Impression: Primary Impression: Vision decreased Disposition: 01 HOME / SELF CARE / HOMELESS Condition: Stable Discharged With: Self Critical Care Note Critical Care Time?: No Stability Stability form required: No Heart Score Heart Score: Heart Score Response (Comments) Value History N/A 0 EKG N/A 0 Age N/A 0 Risk Factors N/A 0 Troponin N/A 0 Total 0 I personally scribed for MEENAKSHI PEREYRA MD ([email or web address]) on 04/19/24 at 19:46. Electronically submitted by Adin Carias ([email or web address]). I personally scribed for MEENAKSHI PEREYRA MD ([email or web address]) on 04/19/24 at 19:48. Electronically submitted by Adin Carias ([email or web address]). MEENAKSHI PEREYRA MD Apr 19, 2024 19:46
== END 2024-04-19 18:52 | disposition left against medical advice (07) ==
LOC: ER 18:14
DX: H53.8 Other visual disturbances (principal); I10 Essential (primary) hypertension; F17.210 Nicotine dependence, cigarettes, uncomplicated; Z90.89 Acquired absence of other organs; Z79.899 Other long term (current) drug therapy; Z88.8 Allergy status to other drugs, medicaments and biological substances

== ENCOUNTER 2024-10-16 13:38 | Emergency (ER) | payer MEDICAID ==
[~2024-10-16] VITALS: Ht 177.8 cm; Wt 91.2 kg
[~2024-10-16 13:38] MED LIST changes: -BENA10TA16 PO
--- NOTE | 2024-10-16 14:50 | ED.PDOC ---
Eye-HPI HPI Comments A 64 YEAR OLD MALE PRESENTS TO THE ED WITH COMPLAINT OF RIGHT EYE REDNESS AND IRRITATION. PATIENT STATES HE HAS BEEN EXPERIENCING RIGHT EYE REDNESS AND IRRITATION THAT STARTED TODAY WHEN HE WOKE UP. PATIENT REPORTS HE FEELS LIKE SOMETHING IS INSIDE OF HIS RIGHT EYE. 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 PATIENT DENIES FEVER, CHILLS, SHORTNESS OF BREATH, CHEST PAIN, ABDOMINAL PAIN, NAUSEA, VOMITING, HEADACHE, OR OTHER COMPLAINTS. NO OTHER SYMPTOMS OR MODIFYING FACTORS AT THIS TIME. PATIENT IS ALERT, ORIENTED X 4, AND HAS STEADY GAIT. Chief Complaint: Eye Problem Time Seen by MD: 13:46 Primary Care Provider: SHARRI Haines Notes: Nurses Notes, Medications, Allergies Allergies: Coded Allergies: Gabapentin (Verified Allergy, Unknown, 03/21/24) Home Meds Active Scripts Tobramycin Sulfate (Tobrex) [address], 2 DROP OP QID, #5 ML Prov:AVIS JOINER 10/16/24 Hydrochlorothiazide (Hydrochlorothiazide) 25 Mg Tab, 1 TAB PO DAILY for 30 Days, #30 TAB 5 Refills Prov:ANITA LA BUSINESS SYSTEM CONSULTANT 03/21/24 Reported Medications Methadone Hcl (METHADONE HCL TABLET) 10 Mg Tb, 1 TAB PO DAILY 04/03/24 Hydrochlorothiazide (Hydrochlorothiazide) 25 Mg Tab, 25 MG PO DAILY for 30 Days, MG 04/03/24 Enoxaparin Sodium (Enoxaparin Sodium) 80 Mg/0.8 Ml Inj, 40 MG SC DAILY, INJ 04/03/24 Bisacodyl (Dulcolax) 10 Mg Sup, 10 MG RE Q4HPRN PRN for FOR CONSTIPATION, SUPP 04/03/24 Docusate Sodium (Docusate Sodium) 100 Mg Cap, 100 MG PO BID, CAP 04/03/24 Cholecalciferol (VITAMIN D3) 2,000 Unit Tab, 0.5 TAB PO DAILY 04/03/24 Cefepime Hcl And Dextrose (Cefepime) 1 Gm Inj, 1 GM IV Q8HR, INJ 04/03/24 Benazepril HCl (Benazepril Hydrochloride) 10 Mg Tab, 10 MG PO DAILY 04/03/24 Lorazepam (ATIVAN TABLET) 0.5 Mg Tb, 2 TAB PO PRN PRN for ANXIETY 04/03/24 Acetaminophen (Tylenol) 325 Mg Cap, 650 MG PO, CAP 04/03/24 Omeprazole (Omeprazole Dr) 20 Mg Cap, 1 DAILY 03/21/24 Information Source: Patient Mode of Arrival: Ambulatory Timing: Hours Duration: Since onset, Hours Prehospital treatment: None Quality: Pain, Red Eye Location: Right Lids: Normal Conjunctiva: Normal Cornea: Right eye, Abrasion Pupils: Normal EOM: Normal Fundus: Normal Slit lamp exam: Right eye, Corneal abrasion, Flourescein stain:, Positive Anterior chamber: Normal Mouth: Normal ENT Ear Exam: Normal, Normal, Normal Nose: Normal Sinuses: Normal Oropharynx: Normal Onset: Spontaneous Throat Exposed to: None History of: None Last Tetanus: Unknown Modifying factors: Nothing Associated signs and symptoms: None Past Medical History PAST MEDICAL HISTORY: HTN, Liver Past Medical History (Other): RIGHT EYE BLIND Surgical History: Tonsillectomy Family History Family History: Reviewed,noncontributory to illness, No family hx of DM, No family hx of Heart shannen, No family hx of HTN Social History Smoker: Cigarettes, Greater Than 1 Pack/Day Alcohol: Sober Drugs: Heroin Lives In: Home Constitutional: denies: chills, diaphoresis, fatigue, fever, malaise, sweats, weakness, others EENTM: reports: eye pain (RIGHT EYE IRRITATION), eye redness (RIGHT EYE REDNESS); denies: blurred vision, double vision, ear bleeding, ear discharge, ear drainage, ear pain, ear ringing, hearing loss, mouth pain, mouth swelling, nasal discharge, nose bleeding, nose congestion, nose pain, photophobia, tearing, throat pain, throat swelling, voice changes, others Respiratory: denies: cough, hemoptysis, orthopnea, SOB at rest, shortness of breath, SOB with excertion, stridor, wheezing, others Cardiovascular: denies: chest pain, dizzy spells, diaphoresis, Dyspnea on exertion, edema, irregular heart beat, left arm pain, lightheadedness, palpitations, PND, syncope, others Gastrointestinal: denies: abdomen distended, abdominal pain, blood streaked bowels, constipated, diarrhea, dysphagia, difficulty swallowing, hematemesis, melena, nausea, poor appetite, poor fluid intake, rectal bleeding, rectal pain, vomiting, others Genitourinary: denies: burning, dysuria, flank pain, frequency, hematuria, incontinence, penile discharge, penile sore, pain, testicle pain, testicle swelling, urgency, others Neurological: denies: dizziness, fainting, headache, left sided numbness, left sided weakness, numbness, paresthesia, pre-existing deficit, right sided numbness, right sided weakness, seizure, speech problems, tingling, tremors, weakness, others Musculoskeletal: denies: back pain, gout, joint pain, joint swelling, muscle pain, muscle stiffness, neck pain, others Integumetry: denies: bruises, change in color, change in hair/nails, dryness, laceration, lesions, lumps, rash, wounds, others Allergic/Immunocompromised: denies: Difficulty Healing, Frequent Infections, Hives, Itching, others Hematologic/Lymphatic: denies: anemia, blood clots, easy bleeding, easy bruising, swollen glands, others Endocrine: denies: excessive hunger, excessive sweating, excessive thirst, excessive urination, flushing, intolerance to cold, intolerance to heat, unexplained weight gain, unexplained weight loss, others Psychiatric: denies: anxiety, bipolar disorder, depression, hopeless, panic disorder, schizophrenia, sleepless, suicidal, others All Other Systems: Reviewed and Negative Physical Exam General Appearance: No Apparent Distress, Normal HEENT: Cornea (R) (WOOD LAMP EXAM: MILD CORNEA ABRASION, NO FB, RIGHT SUBCONJUNCTIVA HEMORRHAGE WITH YELLOW DISCHARGE. ), Normal ENT Inspection, PERRL/EOMI, Pharynx Normal, TMs Normal Neck: Full Range of Motion, Non-Tender, Normal, Normal Inspection Respiratory: Chest Non-Tender, Lungs Clear, No Accessory Muscle Use, No Respiratory Distress, Normal Breath Sounds Cardiovascular: No Edema, No JVD, No Murmur, No Gallop, Normal Peripheral Pulses, Regular Rate/Rhythm Breast Exam: Deferred Gastrointestinal: No Organomegaly, Non Tender, No Pulsatile Mass, Normal Bowel Sounds, Soft Genitalia: Deferred Pelvic: Deferred Rectal: Deferred Extremities: No calf tenderness, Normal capillary refill, Normal inspection, Normal range of motion, Non-tender, No pedal edema Musculoskeletal : Apperance: Normal Neurologic: Alert, upholstery sewer II-XII nml as Tested, No Motor Deficits, Normal Affect, Normal Mood, No Sensory Deficits Cerebellar Function: Normal Reflexes: Normal Skin: Dry, Normal Color, Warm Peripheral Pulses: 2+ carotid (R), 2+ carotid (L) Lymphatic: No Adenopathy Was a procedure done? Was a procedure done?: Yes Sedation Sedation?: No Foreign Body Removal Foreign body in: Eye (RIGHT EYE) Anesthetic: Other (TETRACAINE) Prep: Prep, Saline, Irrigation (RIGHT EYE WITH NASAL SALINE 50ML. ) Procedure: Identified (-FB, +CORNEAL ABRASION OF RIGHT EYE. ) Informed consent obtained: No Risks/benefits/alt described: Yes EENT DIFF Eye: Conjunctivitis, Allergic, Bacterial, Viral, Corneal Abrasion, Foreign Body-Conjunctiva, Foreign Body-Corneal, Foreign Body-Lid, Hordeolum (stye) Ear: N/A Nose: N/A Mouth: N/A Sore Throat: N/A X-Ray, Labs, Meds, VS Vital Signs Date Time Temp Pulse Resp B/P (MAP) Pulse Ox O2 Delivery O2 Flow Rate FiO2 10/16/24 13:39 97.7 58 13 142/71 95 97.7 X-Ray, Labs, Meds, VS Comment EXTERNAL MEDICAL RECORDS REVIEWED: [NONE] INDEPENDENT HISTORIANS: [NONE] SOCIAL DETERMINANTS OF HEALTH: [NONE] LABS ORDERED: NONE REVIEWED AND INTERPRETED RESULTS: NONE IMAGING ORDERED: NONE TREATMENTS ORDERED: NONE PROCEDURES PERFORMED: WOOD'S LAMP EXAMINATION CRITICAL CARE TIME: NONE I HAVE DISCUSSED THE PATIENT WITH THE ATTENDING PHYSICIAN DR. COTTRELL AND HE AGREES WITH THE PATIENT'S PLAN OF CARE AND DISPOSITION. BASED ON HISTORY OF PRESENT ILLNESS, AND PHYSICAL EXAM, PATIENT WILL BE DISCHARGED HOME. DISCUSSED PLAN FOR DISCHARGE HOME WITH RX [TOBREX EYE DROPS]. MEDICATION WARNINGS GIVEN. SHARED DECISION MAKING: PATIENT INSTRUCTED TO FOLLOW UP WITH PRIMARY CARE PROVIDER IN 1-2 DAYS FOR RE-EVALUATION OF SYMPTOMS. PATIENT VERBALIZES UNDERSTANDING TO RETURN TO ED FOR NEW OR WORSENING SYMPTOMS OR IF FOLLOW UP WITH PCP CANNOT BE OBTAINED. PATIENT FEELS COMFORTABLE GOING HOME AT THIS TIME. ALL QUESTIONS ADDRESSED AT TIME OF DISCHARGE. Time of 1ST Reevaluation: 15:05 Reevaluation 1ST: Improved Patient Education/Counseling: Diagnosis, Treatment, Need For Follow Up Family Education/Counseling: Diagnosis, Treatment, Need For Follow Up Medical Screening: No EMC Exist At This Time SEPSIS Sepsis Screen Date sepsis recognized/suspect: Oct 16, 2024 Time Sepsis recognized/suspect: 1339 Recent Procedure: No On Antibiotic Therapy: No Respiratory Rate >20: No Heart Rate >90: No Temp<36 C (96.8 F) or >38.3 C: No SBP <90 or MAP <65 mmHG: No New Acute Mental Status Change: No Is the patient on CPAP, BIPAP,: No Vital Signs Date Time Temp Pulse Resp B/P (MAP) Pulse Ox O2 Delivery O2 Flow Rate FiO2 10/16/24 13:39 97.7 58 13 142/71 95 97.7 Departure 1 Departure Time of Disposition: 15:05 Impression: Primary Impression: Corneal abrasion, right Qualified Codes: S05.01XA - Injury of conjunctiva and corneal abrasion without foreign body, right eye, initial encounter Additional Impression: Acute conjunctivitis, right eye Qualified Codes: H10.31 - Unspecified acute conjunctivitis, right eye Disposition: HOME / SELF CARE / HOMELESS Condition: Stable Additional Instructions: FOLLOW-UP WITH PCP IN 1 TO 2 DAYS. TAKE MEDICATIONS PRESCRIBED. RETURN TO ED FOR ANY NEW OR WORSENING SYMPTOMS. e-Prescriptions Tobramycin Sulfate (Tobrex) [address] 2 DROP OP QID, #5 ML Prov: AVIS JOINER 10/16/24 Discharged With: Self, Relative Critical Care Note Critical Care Time?: No Stability Stability form required: No I personally scribed for AVIS JOINER ([email or web address]) on 10/16/24 at 14:50. Electronically submitted by Dada Munroe ([email or web address]). I personally scribed for AVIS JOINER ([email or web address]) on 10/16/24 at 14:57. Electronically submitted by Dada Munroe ([email or web address]). AVIS JOINER Oct 16, 2024 14:50
[2024-10-16] MEDS: FLUORESCEIN SOD OPTH TEST STRIP RIGHTEYE ONE (14:57)
[2024-10-16] MEDS ORDERED: TOB03OS OP (14:58)
[2024-10-16 15:05] VITALS: BP 143/76; PULSE 50; RESP 14; TEMP 97.9; O2SAT 97
== END 2024-10-16 15:07 | disposition home or self-care (01) ==
LOC: ER 13:38
DX: S05.01XA Injury of conjunctiva and corneal abrasion without foreign body, right eye, initial encounter (principal); H10.31 Unspecified acute conjunctivitis, right eye; I10 Essential (primary) hypertension; F17.210 Nicotine dependence, cigarettes, uncomplicated; Z90.89 Acquired absence of other organs; Z88.8 Allergy status to other drugs, medicaments and biological substances; Z79.899 Other long term (current) drug therapy; X58.XXXA Exposure to other specified factors, initial encounter; Y93.89 Activity, other specified; Y92.89 Other specified places as the place of occurrence of the external cause; Y99.8 Other external cause status
CPT/HCPCS: 65205

== ENCOUNTER 2025-01-01 13:36 | Emergency (ER) | payer MEDICAID ==
[~2025-01-01] VITALS: Ht 180.3 cm; Wt 90.7 kg
[~2025-01-01 13:36] MED LIST changes: +TOB03OS OP
--- NOTE | 2025-01-01 14:09 | ED.PDOC ---
Musculoskeletal HPI Comments 64 y/o M, with PMHx of HTN, DM, and HLD presents to the ED for CC of lower extremity swelling. Patient states, he has been experiencing right leg swelling with associated pain and warmth to the touch 2days. Patient reports, to have had previous symptoms in past. At this time patient c/o 9/10 pain to his right lower extremity. Patient denies fever, chills, shortness of breath, or chest pain. No other symptoms or modifying factors are present at this time. Chief Complaint: Lower Extremity Time Seen by MD: 14:00 Primary Care Provider: SHARRI Reviewed Notes: Nurses Notes, Medications, Allergies Allergies: Coded Allergies: Gabapentin (Verified Allergy, Unknown, 03/21/24) Home Meds Active Scripts Clindamycin Hcl (CLEOCIN) 150 Mg Cap, 1 CAP PO TID, #30 CAP Prov:GREGORIA CLEMENT MD 01/01/25 Tobramycin Sulfate (Tobrex) [address], 2 DROP OP QID, #5 ML Prov:AVIS JOINER 10/16/24 Hydrochlorothiazide (Hydrochlorothiazide) 25 Mg Tab, 1 TAB PO DAILY for 30 Days, #30 TAB 5 Refills Prov:ANITA LA 03/21/24 Reported Medications Methadone Hcl (METHADONE HCL TABLET) 10 Mg Tb, 1 TAB PO DAILY 04/03/24 Hydrochlorothiazide (Hydrochlorothiazide) 25 Mg Tab, 25 MG PO DAILY for 30 Days, MG 04/03/24 Enoxaparin Sodium (Enoxaparin Sodium) 80 Mg/0.8 Ml Inj, 40 MG SC DAILY, INJ 04/03/24 Bisacodyl (Dulcolax) 10 Mg Sup, 10 MG RE Q4HPRN PRN for FOR CONSTIPATION, SUPP 04/03/24 Docusate Sodium (Docusate Sodium) 100 Mg Cap, 100 MG PO BID, CAP 04/03/24 Cholecalciferol (VITAMIN D3) 2,000 Unit Tab, 0.5 TAB PO DAILY 04/03/24 Cefepime Hcl And Dextrose (Cefepime) 1 Gm Inj, 1 GM IV Q8HR, INJ 04/03/24 Benazepril HCl (Benazepril Hydrochloride) 10 Mg Tab, 10 MG PO DAILY 04/03/24 Lorazepam (ATIVAN TABLET) 0.5 Mg Tb, 2 TAB PO PRN PRN for ANXIETY 04/03/24 Acetaminophen (Tylenol) 325 Mg Cap, 650 MG PO, CAP 04/03/24 Omeprazole (Omeprazole Dr) 20 Mg Cap, 1 DAILY 03/21/24 Information Source: Patient Mode of Arrival: Ambulatory Location: Right Extremity Location: Leg Timing: Days Prehospital treatment: None Severity: Moderate Able to Move Extremity: Yes Bear Weight: Fully Pain: Moderate Mechanism: Spontaneous Circumstances: Spontaneous Onset of Symptoms: Spontaneous Symptoms: Swelling, Pain, Erythema DVT Risk Factors: NONE Associated signs and symptoms: Swelling, Leg pain Past Medical History PAST MEDICAL HISTORY: HTN, Liver Surgical History: Tonsillectomy Family History Family History: Reviewed,noncontributory to illness, No family hx of DM, No family hx of Heart shannen, No family hx of HTN Social History Smoker: Cigarettes, Greater Than 1 Pack/Day Alcohol: Sober Drugs: Heroin Lives In: Home Constitutional: denies: chills, diaphoresis, fatigue, fever, malaise, sweats, weakness, others EENTM: denies: blurred vision, double vision, ear bleeding, ear discharge, ear drainage, ear pain, ear ringing, eye pain, eye redness, hearing loss, mouth pain, mouth swelling, nasal discharge, nose bleeding, nose congestion, nose pain, photophobia, tearing, throat pain, throat swelling, voice changes, others Respiratory: denies: cough, hemoptysis, orthopnea, SOB at rest, shortness of breath, SOB with excertion, stridor, wheezing, others Cardiovascular: denies: chest pain, dizzy spells, diaphoresis, Dyspnea on exertion, edema, irregular heart beat, left arm pain, lightheadedness, pa lpitations, PND, syncope, others Gastrointestinal: denies: abdomen distended, abdominal pain, blood streaked bowels, constipated, diarrhea, dysphagia, difficulty swallowing, hematemesis, melena, nausea, poor appetite, poor fluid intake, rectal bleeding, rectal pain, vomiting, others Genitourinary: denies: burning, dysuria, flank pain, frequency, hematuria, incontinence, penile discharge, penile sore, pain, testicle pain, testicle swelling, urgency, others Neurological: denies: dizziness, fainting, headache, left sided numbness, left sided weakness, numbness, paresthesia, pre-existing deficit, right sided numbness, right sided weakness, seizure, speech problems, tingling, tremors, weakness, others Musculoskeletal: reports: others (RIGHT-LEG SWELLING); denies: back pain, gout, joint pain, joint swelling, muscle pain, muscle stiffness, neck pain Integumetry: denies: bruises, change in color, change in hair/nails, dryness, laceration, lesions, lumps, rash, wounds, others Allergic/Immunocompromised: denies: Difficulty Healing, Frequent Infections, Hives, Itching, others Hematologic/Lymphatic: denies: anemia, blood clots, easy bleeding, easy bruising, swollen glands, others Endocrine: denies: excessive hunger, excessive sweating, excessive thirst, excessive urination, flushing, intolerance to cold, intolerance to heat, unex plained weight gain, unexplained weight loss, others Psychiatric: denies: anxiety, bipolar disorder, depression, hopeless, panic disorder, schizophrenia, sleepless, suicidal, others All Other Systems: Reviewed and Negative Physical Exam General Appearance: Mild Distress HEENT: Normal ENT Inspection, Pharynx Normal, TMs Normal Neck: Full Range of Motion, Non-Tender, Normal, Normal Inspection Respiratory: Chest Non-Tender, Lungs Clear, No Accessory Muscle Use, No Respiratory Distress, Normal Breath Sounds Cardiovascular: No Edema, No JVD, No Murmur, No Gallop, Normal Peripheral Pulses, Regular Rate/Rhythm Breast Exam: Deferred Gastrointestinal: No Organomegaly, Non Tender, No Pulsatile Mass, Normal Bowel Sounds, Soft Genitalia: Deferred Pelvic: Deferred Rectal: Deferred Extremities: No calf tenderness, Normal capillary refill, Normal inspection, Normal range of motion, Non-tender, No pedal edema Musculoskeletal : Apperance: Normal Neurologic: Alert, project safety manager II-XII nml as Tested, No Motor Deficits, Normal Affect, Normal Mood, No Sensory Deficits Cerebellar Function: Normal Reflexes: Normal Skin: Dry, Normal Color, Rash (Right lower extremity with a redness from below the knee to the ankle consistent with cellulitis), Warm Lymphatic: No Adenopathy Was a procedure done? Was a procedure done?: No Differential Diagnosis EXT Differential Diagnosis: Cellulitis, Deep Vein Thrombosis X-Ray, Labs, Meds, VS Vital Signs Date Time Temp Pulse Resp B/P (MAP) Pulse Ox O2 Delivery O2 Flow Rate FiO2 11/6/25 13:38 98.1 78 16 126/81 96 98.1 Lab Test 01/01/25 14:15 Range/Units White Blood Count 5.1 4.4-10.8 10^3/uL Red Blood Count 4.47 L 4.5-5.90 10^6/uL Hemoglobin 14.7 13.5-17.5 g/dL Hematocrit 42.2 41.0-53.0 % Mean Corpuscular Volume 94.3 80.0-100.0 fL Mean Corpuscular Hemoglobin 32.8 H 28.0-32.0 pg Mean Corpuscular Hemoglobin Concent 34.8 32.0-36.0 g/dL Red Cell Distribution Width 12.5 11.8-14.3 % Platelet Count 138 L 140-450 10^3/uL Mean Platelet Volume 9.6 6.9-10.8 fL Neutrophils (%) (Auto) 66.6 37.0-80.0 % Lymphocytes (%) (Auto) 17.5 10.0-50.0 % Monocytes (%) (Auto) 14.6 H 0.0-12.0 % Eosinophils (%) (Auto) 1.1 0.0-7.0 % Basophils (%) (Auto) 0.2 0.0-2.0 % Neutrophils # (Auto) 3.4 1.6-8.6 10 ^3/uL Lymphocytes # (Auto) 0.9 0.4-5.4 10 ^3/uL Monocytes # (Auto) 0.7 0-1.3 10 ^3/uL Eosinophils # (Auto) 0.1 0-0.8 10 ^3/uL Basophils # (Auto) 0 0-0.2 10 ^3/uL Nucleated Red Blood Cells 0.1 % Erythrocyte Sedimentation Rate 23 H 0-20 mm/hr Lactic Acid Level 1.2 0.4-2.0 mmol/L The patient's CBC is within normal limits The ESR is elevated at 23 The lactic acid level is within normal limits The patient is afebrile The patient can tolerate p.o. medication so the patient was started on clindamycin The patient will return to the emergency department's the condition worsens. Time of 1ST Reevaluation: 14:30 Reevaluation 1ST: Unchanged Patient Education/Counseling: Diagnosis, Treatment, Prognosis, Need For Follow Up Family Education/Counseling: No Family Present Sepsis Sepsis Reasesment Focused Exam Orders: Laboratory Tests 01/01/25 14:15: Lactic Acid Level 1.2 Departure 1 Departure Time of Disposition: 16:38 Impression: Primary Impression: Cellulitis of right leg Disposition: 01 HOME / SELF CARE / HOMELESS Condition: Fair e-Prescriptions Clindamycin Hcl (CLEOCIN) 150 Mg Cap 1 CAP PO TID, #30 CAP Prov: GREGORIA CLEMENT MD 01/01/25 Discharged With: Self Critical Care Note Critical Care Time?: No Stability Stability form required: No Heart Score Heart Score: Heart Score Response (Comments) Value History N/A 0 EKG N/A 0 Age N/A 0 Risk Factors N/A 0 Troponin N/A 0 Total 0 I personally scribed for GREGORIA CLEMENT MD ([email or web address]) on 01/01/25 at 14:09. Electronically submitted by Soledad Denny ([email or web address]). GREGORIA CLEMENT MD Jan 01, 2025 14:09
[2025-01-01 14:50] LABS: Hematocrit 42.2 % (41.0-53.0); Hemoglobin 14.7 g/dL (13.5-17.5); Mean Corpuscular Hemoglobin 32.8 pg (28.0-32.0); Mean Corpuscular Volume 94.3 fL (80.0-100.0); Nucleated Red Blood Cells % 0.1 %
[2025-01-01] MEDS ORDERED: CLIN150C PO (16:38)
[2025-01-01 17:18] VITALS: BP 128/73; PULSE 95; RESP 18; TEMP 97.6; O2SAT 99
== END 2025-01-01 17:21 | disposition home or self-care (01) ==
LOC: ER 13:36
DX: L03.115 Cellulitis of right lower limb (principal); F17.210 Nicotine dependence, cigarettes, uncomplicated; I10 Essential (primary) hypertension; E78.5 Hyperlipidemia, unspecified; E11.9 Type 2 diabetes mellitus without complications; Z79.899 Other long term (current) drug therapy; Z90.89 Acquired absence of other organs; Z88.8 Allergy status to other drugs, medicaments and biological substances
CPT/HCPCS: 36415; 83605; 85025; 85652